=== PATIENT | male | born 1945 | race Asian ===

== ENCOUNTER 2017-10-14 16:57 | Inpatient (IN) | payer OTHER ==
--- NOTE | 2017-10-14 17:04 | PDOC ---
History of Present Illness - History of Present Illness Initial Comments: 10/14/17 18:33 72 M with a significant PMHx of HTN, ASHD, BPH, who was sent today from his doctors office for a traumatic subdural hematoma. Patient was vacationing in [facility] and fell on Sep 20 while in the bathroom. He went to the hospital there and they found a small dot of blood on the CT, monitored for two days, and then discharged. [place] the [place] and saw his primary today, CT results showed a traumatic right-sided subdural hematoma. Patient does not have any particular complaints at this time He denies headache, sleepiness, lethargy, and vomit PCP: Wilfrido Garcia Apple Picker: Benjie Carlisle Surgical Hx: gallbladder removal, tonsillectomy, hernia repair. <Sara Ohara - Last Filed: 10/14/17 20:49> <Shasta Russell - Last Filed: 10/14/17 21:19> - General Stated Complaint: REF BY DOCTOR Past History <Sara Ohara - Last Filed: 10/14/17 20:49> <Shasta Russell - Last Filed: 10/14/17 21:19> - Past Medical History Allergies/Adverse Reactions: Allergies Allergy/AdvReac Type Severity Reaction Status Date / Time No Known Allergies Allergy Unverified 10/14/17 17:40 Home Medications: Ambulatory Orders Atenolol 25 mg PO DAILY #18 tablet 06/21/14 Enalapril Maleate 5 mg PO DAILY tablet 06/21/14 Amlodipine/Atorvastatin [Amlodipine-Atorvast 5-20 mg] 1 each PO DAILY 10/14/17 Finasteride [Propecia] 1 mg PO DAILY 10/14/17 Memantine HCl [Namenda -] 10 mg PO BID 10/14/17 Tamsulosin HCl [Flomax] 0.4 mg PO DAILY 10/14/17 Review of Systems - Review of Systems Comments:: 10/14/17 18:33 CONSTITUTIONAL: Absent: fever, chills, diaphoresis, generalized weakness, malaise, loss of appetite HEENT: Absent: rhinorrhea, nasal congestion, throat pain, throat swelling, difficulty swallowing, mouth swelling, ear pain, eye pain, visual changes CARDIOVASCULAR: Absent: chest pain, syncope, palpitations, irregular heart rate, lightheadedness , peripheral edema RESPIRATORY: Absent: cough, shortness of breath, dyspnea with exertion, orthopnea, wheezing, stridor, hemoptysis GASTROINTESTINAL: Absent: abdominal pain, abdominal distension, nausea, vomiting, diarrhea, constipation, melena, hematochezia GENITOURINARY: Absent: dysuria, frequency, urgency, hesitancy, hematuria, flank pain, genital pain MUSCULOSKELETAL: Absent: myalgia, arthralgia, joint swelling SKIN: Present: hematoma - right periorbital, right arm; healed laceration to right temporal. Absent: rash, itching, pallor HEMATOLOGIC/IMMUNOLOGIC: Absent: easy bleeding, easy bruising, lymphadenopathy, frequent infections ENDOCRINE: Absent: unexplained weight gain, unexplained weight loss, heat intolerance, cold intolerance NEUROLOGIC: Absent: headache, focal weakness or paresthesias, dizziness, unsteady gait, seizure, mental status changes, bladder or bowel incontinence PSYCHIATRIC: Absent: anxiety, depression, suicidal or homicidal ideation, hallucinations. <Sara Ohara - Last Filed: 10/14/17 20:49> *Physical Exam - Physical Exam Comments: 10/14/17 18:36 GENERAL: Well developed, well nourished. Awake and alert. No acute distress. HEENT: Normocephalic, atraumatic. PERRLA, EOMI. No conjunctival pallor. Sclera are non- icteric. Moist mucous membranes. Oropharynx is clear. NECK: Supple. Full ROM. No JVD. Carotid pulses 2+ and symmetric, without bruits. No thyromegaly. No lymphadenopathy. CARDIOVASCULAR: Regular rate and rhythm. No murmurs, rubs, or gallops. Distal pulses are 2+ and symmetric. PULMONARY: No evidence of respiratory distress. Lungs clear to auscultation bilaterally. No wheezing, rales or rhonchi. ABDOMINAL: Soft. Non-tender. Non-distended. No rebound or guarding. No organomegaly. Normoactive bowel sounds. MUSCULOSKELETAL Normal range of motion at all joints. No bony deformities or tenderness. No CVA tenderness. EXTREMITIES: No cyanosis. No clubbing. No edema. No calf tenderness. SKIN: Old ecchymosis on right upper arm and right peroribital area. Healed 4cm laceration to right temporal region. Warm and dry. Normal capillary refill. No rashes. No jaundice. NEUROLOGICAL: Alert, awake, appropriate. Cranial nerves 2-12 intact. No deficits to light touch and temperature in face, upper extremities and lower extremities. No motor deficits in the in face, upper extremities and lower extremities. Normoreflexic in the upper and lower extremities. Normal speech. Toes are down-going bilaterally. Gait is normal without ataxia. PSYCHIATRIC: Cooperative. Good eye contact. Appropriate mood and affect. <Sara Ohara - Last Filed: 10/14/17 20:49> Heart Score/ECG Review - ECG Intrepretation Comment:: 10/14/17 20:50 Normal sinus rhythm Possible anterior/inferior infarct Abnormal EKG Vent rate. 63 bpm <Sara Ohara - Last Filed: 10/14/17 20:49> ED Treatment Course - LABORATORY CBC & Chemistry Diagram: 10/14/17 19:15 10/14/17 19:15 - Consult/PCP Case discussed with consulting physician: Marlon Cotton (Spoke with Darron, will admit, drained in AM. ) <Sara Ohara - Last Filed: 10/14/17 20:49> - LABORATORY CBC & Chemistry Diagram: 10/14/17 19:15 10/14/17 19:15 <Shasta Russell - Last Filed: 10/14/17 21:19> Medical Decision Making - Medical Decision Making 10/14/17 19:33 14-year-old male fell and during his Dilantin medication September. He was admitted in a local hospital there. - The head CT on September 20 did not show any significant bleed or infarct. Upon returning his took him to see Dr. Garcia to make sure everything was okay. It was noted that he seemed to be little bit more forgetful, but he does have some mild dementia at baseline and takes Namenda. Brain MRI that was done today shows a moderate panhemispheric subdural hematoma with moderate midline shift The neurologist, Dr. Cotton wants Patient admitted for burhole procedure tomorrow Patient is alert and oriented 3, moving all his extremities. He is ambulatory. He is not complaining of any headache or nausea or vomiting. 10/14/17 20:41 <Shasta Russell - Last Filed: 10/14/17 21:19> *DC/Admit/Observation/Transfer - Attestations Scribe Attestion: 10/14/17 18:37 Documentation prepared by Sara Ohara, acting as nuclear medical tech for Shasta Russell MD. <Sara Ohara - Last Filed: 10/14/17 20:49> - Discharge Dispostion Admit: Yes <Shasta Russell - Last Filed: 10/14/17 21:19> Diagnosis at time of Disposition: Subdural hematoma, post-traumatic Qualifiers: Encounter type: initial encounter Loss of consciousness presence/duration: without LOC Qualified Code(s): S06.5X0A - Traumatic subdural hemorrhage without loss of consciousness, initial encounter
[2017-10-14 19:37] LABS: BASO % 2.3 % (0-2.0); EOS % 2.9 % (0-4.5); HEMATOCRIT 36.5 % (35.4-49); HEMOGLOBIN 12.2 GM/dL (11.7-16.9); MCH 31.1 pg (25.7-33.7); MCHC 33.4 g/dl (32.0-35.9); MONO % 8.6 % (3.8-10.2); NEUT % 57.2 % (42.8-82.8); PLATELET COUNT 260 K/MM3 (134-434); RBC 3.92 M/mm3 (4.00-5.60); RDW 13.4 % (11.9-15.9); WHITE BLOOD COUNT 6.5 K/mm3 (4.0-10.0)
[2017-10-14 19:38] LABS: MEAN PLT VOLUME 5.7 fl (7.5-11.1)
[2017-10-14 19:56] LABS: INR 0.96 (0.82-1.09); PROTHROMBIN TIME (PATIENT) 10.8 SEC (9.98-11.88)
[2017-10-14 20:22] LABS: ALBUMIN 4.1 g/dl (3.4-5.0); ANION GAP 6 (8-16); BILIRUBIN,TOTAL 0.4 mg/dL (0.2-1.0); BLOOD UREA NITROGEN 14 mg/dL (7-18); CALCIUM 8.2 mg/dL (8.5-10.1); CHLORIDE 103 mmol/L (98-107); CO2 26 mmol/L (21-32); CREATININE 0.9 mg/dL (0.7-1.3); GLUCOSE,RANDOM 80 mg/dL (74-106); POTASSIUM 3.9 mmol/L (3.5-5.1); SGOT/AST 18 U/L (15-37); SGPT/ALT 22 U/L (12-78); SODIUM 135 mmol/L (136-145); TOT PROT 7.4 g/dl (6.4-8.2)
[2017-10-14 20:25] LABS: ALK PHOS 96 U/L (45-117)
--- NOTE | 2017-10-14 20:53 | PN ---
Teaching Attending Note Name of Resident: Lizzy Salazar ATTENDING PHYSICIAN STATEMENT I saw and evaluated the patient. I reviewed the resident's note and discussed the case with the resident. I agree with the resident's findings and plan as documented. SUBJECTIVE: 72 pmhx. of HTN, ASHD, BPH who presented with traumatic subdural hematoma. He was vacationing in [facility] on 09/20 and fell while he was in the bathroom there and hit his head. States he went to hospital there and CT was done, where they found minute blood, he was observed for two days and then d/c'd. Saw his PCP today, who ordered a MRI. OBJECTIVE: Physical: VS: Vital Signs Period Temp Pulse Resp BP Sys/Espinoza Pulse Ox Last 24 Hr 98.8 F 72 18 132/69 100 GEN: NAD, Restin in bed, AA0X2 HEENT: NCAT, PERRL, Throat without erythema and exudates, L. eye eccymosis CARD: RRR S1, S2 RESP: CTAB ABD: BSX4, NTD to palpation EXT: - C/C/E CBCD WBC 6.5 K/mm3 (4.0-10.0) D 10/14/17 19:15 RBC 3.92 M/mm3 (4.00-5.60) L 10/14/17 19:15 Hgb 12.2 GM/dL (11.7-16.9) 10/14/17 19:15 Hct 36.5 % (35.4-49) 10/14/17 19:15 MCV 93.0 fl (80-96) 10/14/17 19:15 MCHC 33.4 g/dl (32.0-35.9) 10/14/17 19:15 RDW 13.4 % (11.9-15.9) 10/14/17 19:15 Plt Count 260 K/MM3 (134-434) 10/14/17 19:15 MPV 5.7 fl (7.5-11.1) L D 10/14/17 19:15 CMP Sodium 135 mmol/L (136-145) L 10/14/17 19:15 Potassium 3.9 mmol/L (3.5-5.1) 10/14/17 19:15 Chloride 103 mmol/L (98-107) 10/14/17 19:15 Carbon Dioxide 26 mmol/L (21-32) 10/14/17 19:15 Anion Gap 6 (8-16) L 10/14/17 19:15 BUN 14 mg/dL (7-18) D 10/14/17 19:15 Creatinine 0.9 mg/dL (0.7-1.3) 10/14/17 19:15 Creat Clearance w eGFR > 60 (>60) 10/14/17 19:15 Random Glucose 80 mg/dL (74-106) 10/14/17 19:15 Calcium 8.2 mg/dL (8.5-10.1) L 10/14/17 19:15 Total Bilirubin 0.4 mg/dL (0.2-1.0) D 10/14/17 19:15 AST 18 U/L (15-37) D 10/14/17 19:15 ALT 22 U/L (12-78) D 10/14/17 19:15 Alkaline Phosphatase 96 U/L (45-117) D 10/14/17 19:15 Total Protein 7.4 g/dl (6.4-8.2) 10/14/17 19:15 Albumin 4.1 g/dl (3.4-5.0) 10/14/17 19:15 CARDIAC ENZYMES Creatine Kinase 114 IU/L (39-308) 10/14/17 19:15 Troponin I < 0.02 ng/ml (0.00-0.05) 10/14/17 19:15 MRI BRAIN: Mod-large late subacute/chronic right sided panhemispheric subdural hematoma notes with mild-moderate contralateral midline displacement. Several SubCm late EKG:PENDING ASSESSMENT AND PLAN: 72 pmhx. of HTN, ASHD, BPH who presented with traumatic subdural hematoma. 1.) Traumatic Subdural Hematoma - NPO - Type & Screen - Repeat CBC - Coags - NPO - Neurosx on consult - Avoid IVF - Hold Po meds 2.) Dvt Ppx - Scds Place in ICU CC Time:
--- NOTE | 2017-10-14 21:03 | HP ---
CHIEF COMPLAINT: S/p subdural hematoma post fall for lluvia hole PCP: Dr Jose Cotton- Neurosurgeon Dr Norton- Sock Ironer HISTORY OF PRESENT ILLNESS: 72 yo M with PMHx of HTN, TN, Artherosclerotic heart dx, BPH, dementia, presenting after a fall in [place] on Sep 20 and found to have an initially stable subdural hematoma (CT head x2 in [facility]). Pt slipped in [place] and fell while taking a shower, hitting his head face down on the tiles. He bled from a gash on his R forehead (Which was stitched) and bruised underneath his eyes R>L. Pt was observed in the ICU in [facility] for 2 days for the "small stable intracranial bleed". Following discharge from the hospital, in [facility], they continued their tours, at a slower pace, with the pt able to keep up with the activity. Since after the fall, the has noticed pt is more forgetful, and has a bit of an unsteady gait. No loss of sensation, facial droop, slurred speech or weakness of any part of the body however has been noted. No fevers, headaches, chest pain or SOB. Pt was sent by neurosurgeon Dr Cotton after MRI (10/14/17) revealed a moderate midline shift. Pt is to be admitted to ICU for neuro-checks and for monitoring post-lluvia hole. ER course was notable for: (1) CBC, CMP, trops <0.02, INR-0.96, PTT-10.80 (2) CXR- (3) Recent Travel: PAST MEDICAL HISTORY: HTN, TN (28yrs ago) Artherosclerotic heart dx, BPH, dementia PAST SURGICAL HISTORY: Social History: Smoking: former- 1pack/day x10yrs- stopped 28yrs ago Alcohol:Social Drugs: Never Family History: Allergies No Known Allergies Allergy (Unverified 10/14/17 17:40) HOME MEDICATIONS: Home Medications Medication Instructions Recorded Atenolol 25 mg PO DAILY #18 tablet 06/21/14 Enalapril Maleate 5 mg PO DAILY tablet 06/21/14 Amlodipine/Atorvastatin 1 each PO DAILY 10/14/17 [Amlodipine-Atorvast 5-20 mg] Finasteride [Propecia] 1 mg PO DAILY 10/14/17 Memantine HCl [Namenda -] 10 mg PO BID 10/14/17 Tamsulosin HCl [Flomax] 0.4 mg PO DAILY 10/14/17 REVIEW OF SYSTEMS CONSTITUTIONAL: Absent: fever, chills, diaphoresis, generalized weakness, malaise, loss of appetite, weight change HEENT: Absent: rhinorrhea, nasal congestion, throat pain, throat swelling, difficulty swallowing, mouth swelling, ear pain, eye pain, visual changes CARDIOVASCULAR: Absent: chest pain, syncope, palpitations, irregular heart rate, lightheadedness , peripheral edema RESPIRATORY: Absent: cough, shortness of breath, dyspnea with exertion, orthopnea, wheezing, stridor, hemoptysis GASTROINTESTINAL: Absent: abdominal pain, abdominal distension, nausea, vomiting, diarrhea, constipation, melena, hematochezia GENITOURINARY: Absent: dysuria, frequency, urgency, hesitancy, hematuria, flank pain, genital pain MUSCULOSKELETAL: Absent: myalgia, arthralgia, joint swelling, back pain, neck pain SKIN: Absent: rash, itching, pallor HEMATOLOGIC/IMMUNOLOGIC: Absent: easy bleeding, easy bruising, lymphadenopathy, frequent infections ENDOCRINE: Absent: unexplained weight gain, unexplained weight loss, heat intolerance, cold intolerance NEUROLOGIC: Absent: headache, focal weakness or paresthesias, dizziness, unsteady gait, seizure, mental status changes, bladder or bowel incontinence PSYCHIATRIC: Absent: anxiety, depression, suicidal or homicidal ideation, hallucinations. PHYSICAL EXAMINATION Vital Signs - 24 hr 10/14/17 17:00 Temperature 98.8 F Pulse Rate 72 Respiratory 18 Rate Blood Pressure 132/69 O2 Sat by Pulse 100 Oximetry (%) GENERAL: Awake, oriented to person. Knew he was in a hospital, but unable to say which, did not know his age/ or the year. HEAD: Healed scar above R forehead, bruised infraoribital regions bilaterally R> L. EYES: Pupils equal, round and reactive to light, extraocular movements intact, sclera anicteric, conjunctiva clear. No lid lag. EARS, NOSE, THROAT: Ears normal, nares patent, oropharynx clear without exudates. Moist mucous membranes. NECK: Normal range of motion, supple without lymphadenopathy, JVD, or masses. LUNGS: Breath sounds equal, clear to auscultation bilaterally. No wheezes, and no crackles. HEART: Regular rate and rhythm, normal S1 and S2 without murmur, rub or gallop. ABDOMEN: Soft, nontender, not distended, normoactive bowel sounds, no guarding, no rebound, no masses. MUSCULOSKELETAL: Normal range of motion at all joints. No bony deformities or tenderness. No CVA tenderness. UPPER EXTREMITIES: 2+ pulses, warm, well-perfused. No peripheral edema. Strength 5/5, normal tone, normal sensations LOWER EXTREMITIES: 2+ pulses, warm, well-perfused. No peripheral edema. Strength 5/5, normal tone, normal sensations NEUROLOGICAL: No facial droop. Cranial nerves II-XII intact. Normal speech. Gait not observed PSYCHIATRIC: Cooperative. forgetful Laboratory Results - last 24 hr 10/14/17 10/14/17 10/14/17 19:15 19:15 19:15 WBC 6.5 D RBC 3.92 L Hgb 12.2 Hct 36.5 MCV 93.0 MCH 31.1 MCHC 33.4 RDW 13.4 Plt Count 260 MPV 5.7 L D Neutrophils % 57.2 Lymphocytes % 29.0 Monocytes % 8.6 Eosinophils % 2.9 Basophils % 2.3 H PT with INR 10.80 INR 0.96 Sodium 135 L Potassium 3.9 Chloride 103 Carbon Dioxide 26 Anion Gap 6 L BUN 14 D Creatinine 0.9 Creat Clearance w eGFR > 60 Random Glucose 80 Calcium 8.2 L Total Bilirubin 0.4 D AST 18 D ALT 22 D Alkaline Phosphatase 96 D Creatine Kinase 114 Troponin I < 0.02 Total Protein 7.4 Albumin 4.1 Blood Type Antibody Screen 10/14/17 19:15 WBC RBC Hgb Hct MCV MCH MCHC RDW Plt Count MPV Neutrophils % Lymphocytes % Monocytes % Eosinophils % Basophils % PT with INR INR Sodium Potassium Chloride Carbon Dioxide Anion Gap BUN Creatinine Creat Clearance w eGFR Random Glucose Calcium Total Bilirubin AST ALT Alkaline Phosphatase Creatine Kinase Troponin I Total Protein Albumin Blood Type O POSITIVE Antibody Screen Negative MRI brain: moderate panhemispheric subdural hematoma with moderate midline shift ASSESSMENT/PLAN: 72 yo M with PMHx of HTN, TN, Artherosclerotic heart dx, BPH, dementia, presenting with TBI s/p fall, now found to have subdural hematoma with midline shift admitted for a burrhole TBI with subdural hematoma and midline shift: Neuroconsult- Dr Cotton on board ICU consult- Dr Shetty Neurocsarahcks Q4H Type and screen EKG CXR PTT PT/INR CBC, CMP, Mg, Ph Repeat trops NPO after midnight Dr Rob- Cardio clearance (requested by family) HTN: Hold home meds Confirm meds in am Artherosclerotic heart dx/ previous TN: Hold home meds BPH: Hold home meds Dementia: Hold home meds FEN: No fluids recommended at this time Monitor lytes and replete as needed PPx: SCDs Hold heparin for Sx Dispo: ICU Visit type - Emergency Visit Emergency Visit: Yes ED Registration Date: 10/14/17 Care time: The patient presented to the Emergency Department on the above date and was hospitalized for further evaluation of their emergent condition. - New Patient This patient is new to me today: Yes Date on this admission: 10/15/17 - Critical Care Critical Care patient: Yes Total Critical Care Time (in minutes): 38 Critical Care Statement: The care of this patient involved high complexity decision making to prevent further life threatening deterioration of the patient 's condition and/or to evaluate & treat vital organ system(s) failure or risk of failure. Hospitalist Screening - Colonoscopy Questionnaire Colonoscopy Questionnaire: Colonoscopy Questionnaire - Patient: 50 - 75 years old and never had a screening colonoscopy: Unknown History of colon or rectal polyps, or CA: Unknown History of IBD, Crohn's disease or UC: Unknown History of abdominal radiation therapy as a child: Unknown - Relative: 1 with colon or rectal CA, or polyps at age 60 or younger: Unknown Colon or rectal CA diagnosed at age 45 or younger: Unknown Multiple relatives with colon or rectal CA: Unknown - Outcome: Screening Result: Negative Screen
[2017-10-14 21:08] LABS: URINE APPEARANCE CLEAR; URINE BILIRUBIN NEGATIVE (NEGATIVE); URINE BLOOD NEGATIVE (NEGATIVE); URINE COLOR LTYELLOW; URINE GLUCOSE (UA) NEGATIVE (NEGATIVE); URINE KETONE NEGATIVE (NEGATIVE); URINE LEUK ESTERASE NEGATIVE (NEGATIVE); URINE NITRITE NEGATIVE (NEGATIVE); URINE PROTEIN NEGATIVE (NEGATIVE); URINE UROBILINOGEN NEGATIVE mg/dL (0.2-1.0)
[2017-10-14 22:33] VITALS: BMI 21.6
--- NOTE | 2017-10-14 22:40 | CONSULT ---
Consult Consult Specialty:: Pulmonary/Critical Care Reason for Consultation:: Subdural hematoma - History of Present Illness Chief Complaint: Forgetfulness, unsteady gait, known subdural hematoma, now with midline shift History of Present Illness: Mr. Rivera is a 72 yo male with PMHx of HTN, [place], artherosclerotic heart dx, BPH, dementia (dx ~1year ago with early Alzheimer's), who fell in [place] on 09/20 and found to have an initially stable subdural hematoma, but when noted slightly unsteady gait and increased forgetfulness, saw PCP and MRI done 2017 which revealed moderate midline shift, prompting referral to [facility] ED by Neurosurgeon Dr Rob. Plan for lluvia hole by Neurosurgery in am. Admitted to ICU for close monitoring with frequent neuro checks. Arrived to ICU in NAD, vital signs stable and GCS 14, loss 1 point for confusion to month/year and president. AOx1-2, knew name and able to state situation and reason for hospitalization. Denies TRAVIS, blurred vision, nausea, dizziness, numbness/tingling , and/or weakness. Denied CP/SOB, n/v/d, or urinary complaints. - History Source History Provided By: Patient, Significant Other () Limitations to Obtaining History: Dementia - Past Medical History MARKETING SUPPORT SPECIALIST: Yes: Alzheimer's Cardio/Vascular: Yes: HTN, [place], Other (atheroslerotic heart disease) Renal/: Yes: BPH - Past Surgical History Past Surgical History: Yes: Cholecystectomy, Hernia Repair, Tonsillectomy - Alcohol/Substance Use Hx Alcohol Use: Yes (occasional) History of Substance Use: reports: None - Smoking History Smoking history: Former smoker (10 pack year history, quit in late 20s, smoked 1ppd for ~ 10yrs) Have you smoked in the past 12 months: No - Social History Usual Living Arrangement: With Spouse ADL: Independent Home Medications - Allergies Allergies/Adverse Reactions: Allergies Allergy/AdvReac Type Severity Reaction Status Date / Time No Known Allergies Allergy Unverified 10/14/17 17:40 - Home Medications Home Medications: Ambulatory Orders Atenolol 25 mg PO DAILY #18 tablet 06/21/14 Enalapril Maleate 5 mg PO DAILY tablet 06/21/14 Amlodipine/Atorvastatin [Amlodipine-Atorvast 5-20 mg] 1 each PO DAILY 10/14/17 Finasteride [Propecia] 1 mg PO DAILY 10/14/17 Memantine HCl [Namenda -] 10 mg PO BID 10/14/17 Tamsulosin HCl [Flomax] 0.4 mg PO DAILY 10/14/17 Review of Systems - Review of Systems Constitutional: reports: Lethargy Eyes: denies: Blurred Vision, Eye Pain, Recent Change in Vision HENT: denies: Difficult Swallowing Neck: denies: Decreased ROM, Pain on Movement Cardiovascular: denies: Chest Pain Respiratory: denies: Cough, SOB, SOB on Exertion Gastrointestinal: denies: Abdominal Pain, Constipation, Nausea, Vomiting Genitourinary: reports: Other (denies retention). denies: Dysuria, Frequency, Urgency Musculoskeletal: denies: Muscle Weakness Integumentary: reports: Bruising (below right eye as result of fall 2/3). denies: Rash, Wound Neurological: reports: Confusion ( reports increased confusion since fall), Pre-Existing Deficit (Alzheimer's dx'd about one year ago a/p ), Unsteady Gait ( reports slight unsteadiness to gait since fall). denies: Change in LOC, Change in Speech, Dizziness, Headache, Numbness, Parasthesia, Syncope, Weakness Endocrine: reports: Other (poor appetite since around the time of Alzheimer's dx a/p ) Physical Exam Vital Signs: Vital Signs Temperature 98.6 F 10/14/17 22:22 Pulse Rate 86 10/14/17 22:22 Respiratory Rate 18 10/14/17 22:22 Blood Pressure 132/89 10/14/17 22:22 O2 Sat by Pulse Oximetry (%) 100 10/14/17 22:22 Constitutional: Yes: No Distress, Calm, Thin Eyes: Yes: Conjunctiva Clear, EOM Intact, PERRL HENT: Yes: Normocephalic, Other (ecchymosis below right eye) Cardiovascular: Yes: Regular Rate and Rhythm Respiratory: Yes: CTA Bilaterally Gastrointestinal: Yes: Normal Bowel Sounds, Soft, Other (nontender, nondistended ) ...Rectal Exam: Yes: Deferred Edema: No Peripheral Pulses WNL: Yes Neurological: Yes: Confusion (AOx ~ 2, knows name and place, confused to month/ year and president), Cran Nerves II-XII Intact ...Motor Strength: WNL (equal bilaterally) Labs: CBC, BMP 10/14/17 19:15 10/14/17 19:15 Hepatic Panel Total Bilirubin 0.4 mg/dL (0.2-1.0) D 10/14/17 19:15 AST 18 U/L (15-37) D 10/14/17 19:15 ALT 22 U/L (12-78) D 10/14/17 19:15 Alkaline Phosphatase 96 U/L (45-117) D 10/14/17 19:15 Albumin 4.1 g/dl (3.4-5.0) 10/14/17 19:15 Coags normal UA negative T&S active Imaging - Results X-ray: Report Reviewed (CXR 10/14: The heart size is within normal limits. The lung delacruz are free of pulmonary infiltrates or pleural effusions. There is tortuosity and calcification of the thoracic aorta and degenerative changes of the thoracic spine. IMPRESSION: No acute disease.) MRI: Report Reviewed (BRAIN MRI 10/14:IMPRESSION: A moderate to large late subacute/chronic right-sided panhemispheric subdural hematoma is noted with resultant mild to moderate contralateral midline displacement. Several subcentimeter late subacute/chronic bilateral frontal hemorrhagic cortical contusions are seen without associated edema or mass effect. Minimal periventricular and subcortical chronic microvascular changes are noted as on a previous MRI study of 10/28/2016. No interval imaging studies are available at this facility for direct comparison. Moderate right maxillary sinusitis which is probably subacute or chronic. Correlate clinically.) Assessment/Plan A/P: s/p fall September 20 where found to have subdural hematoma, now MRI revealing moderate panhemispheric subdural hematoma with moderate midline shift , admitted to ICU for monitoring with plan for [place] hole in am by Neurosurgery -neuro checks q1h -HOB>30 degrees -active T&S done -coags normal -NPO for OR Critical Care Time: 25min
[2017-10-15 06:30] LABS: BASO % 2.3 % (0-2.0); EOS % 1.8 % (0-4.5); HEMATOCRIT 36.8 % (35.4-49); HEMOGLOBIN 12.3 GM/dL (11.7-16.9); LYMPH % 27.8 % (8-40); MCH 31.3 pg (25.7-33.7); MCHC 33.5 g/dl (32.0-35.9); MEAN CELL VOLUME 93.4 fl (80-96); MEAN PLT VOLUME 6.1 fl (7.5-11.1); MONO % 7.5 % (3.8-10.2); NEUT % 60.6 % (42.8-82.8); PLATELET COUNT 263 K/MM3 (134-434); RBC 3.94 M/mm3 (4.00-5.60); RDW 13.3 % (11.9-15.9)
--- NOTE | 2017-10-15 06:41 | PN ---
Progress Note, Physician History of Present Illness: Last night: Admitted to ICU for traumatic R subdural hematoma on MRI. Patient has baseline dementia, but is more confused as per . AMADEO overnight. VSS Today: No complaints. No headache. Not oriented to place/month. Difficulty with memory. Otherwise pleasant. To the OR either later today or tomorrow. NPO since midnight - Objective Vital Signs: Vital Signs Period Temp Pulse Resp BP Sys/Espinoza Pulse Ox Last 24 Hr 98.5 F-98.8 F 60-86 14-18 128-137/69-89 98-100 Additional Findings/Remarks: GEN: Awake, alert, oriented just to person, not to place/month HEENT: PERRLA, EOMi, bruise under R eye CV: S1, S2, RRR LUNG: CTABL ABD: Soft, NT, ND MSK: No edema, no erythema NEURO: CN 2-12 grossly intact MSK 5/5 in all extremities Sensation intact Assessment/Plan 72yo M with a PMHx of Dementia (diagnosed last year), HTN who presented with a subdural hematoma after a mechanical slip & fall. Presents with increased confusion Neuro: * # R Subdural Hematoma - Likely acute traumatic after recent mechanical fall in [place] while on vacation. Pt has trauma to ipsilateral face, and subdural was not present 1 year ago on MRI. Patient has increased confusion, but is otherwise neurologically intact. Coags wnl. Dr Cotton will take to OR today for [place] hole procedure. NPO since midnight. * # Dementia - Diagnosed last year, but more confused above baseline. Will hold Namenda prior to procedure CV: * # HTN - Continue home antiHTN meds after surgery. BP stable. EKG NSR w/o ST or TWI FEN/PPX: No fluids, NPO, on SCDs Dispo: To the OR tmrw, remain in ICU Amy León MD PGY1 ICU
[2017-10-15 06:53] LABS: INR 0.98 (0.82-1.09); PROTHROMBIN TIME (PATIENT) 11.1 SEC (9.98-11.88)
[2017-10-15 06:56] LABS: ACTIVATED PTT 29.9 SECONDS (26.9-34.4)
[2017-10-15 06:59] LABS: ALBUMIN 3.9 g/dl (3.4-5.0); ANION GAP 10 (8-16); BLOOD UREA NITROGEN 11 mg/dL (7-18); CALCIUM 8.7 mg/dL (8.5-10.1); CHLORIDE 101 mmol/L (98-107); CO2 24 mmol/L (21-32); CREATININE 0.9 mg/dL (0.7-1.3); GLUCOSE,RANDOM 88 mg/dL (74-106); MAGNESIUM 2.1 mg/dL (1.8-2.4); PHOSPHOROUS 3.7 mg/dL (2.5-4.9); POTASSIUM 4.2 mmol/L (3.5-5.1); SGOT/AST 24 U/L (15-37); SGPT/ALT 22 U/L (12-78); SODIUM 135 mmol/L (136-145)
[2017-10-15 07:04] LABS: ALK PHOS 74 U/L (45-117); BILIRUBIN,TOTAL 0.6 mg/dL (0.2-1.0); TOT PROT 7.1 g/dl (6.4-8.2)
--- NOTE | 2017-10-15 09:36 | PN ---
Progress Note, Physician History of Present Illness: confusion and unsteady - Current Medication List Current Medications: Active Medications Chlorhexidine Gluconate (Hibiclens For Decolonization -) 1 applic TP HS DB Mupirocin (Bactroban Ointment (For Decolonization) -) 1 applic NS BID DB Stop: 10/20/17 09:59 - Objective Vital Signs: Vital Signs Temperature 98.2 F 10/15/17 06:00 Pulse Rate 86 10/15/17 08:00 Respiratory Rate 16 10/15/17 06:00 Blood Pressure 144/82 10/15/17 08:00 O2 Sat by Pulse Oximetry (%) 100 10/15/17 07:51 Cardiovascular: Yes: S1, S2 Respiratory: Yes: Regular, CTA Bilaterally Gastrointestinal: Yes: Normal Bowel Sounds, Soft. No: Tenderness Neurological: Yes: Alert, Confusion. No: Facial Droop Labs: CBC, BMP 10/15/17 06:10 10/15/17 06:10 INR, PTT INR 0.98 (0.82-1.09) 10/15/17 06:10 Problem List - Problems (1) Subdural hematoma, post-traumatic Assessment/Plan: NS CONSULT APPRECIATED SCAN NOTED OR TODAY ICU MONITORING Code(s): S06.5X9A - TRAUM SUBDR HEM W LOC OF UNSP DURATION, INIT Qualifiers: Encounter type: initial encounter Loss of consciousness presence/duration: without LOC Qualified Code(s): S06.5X0A - Traumatic subdural hemorrhage without loss of consciousness, initial encounter (2) HTN (hypertension) Assessment/Plan: MONITOR ON ATENOLOL HOLD OFF NORVASC AND JULISSA Code(s): I10 - ESSENTIAL (PRIMARY) HYPERTENSION (3) Myocardial infarct, old Assessment/Plan: ON LIPITOR CARDIO CONSULT Code(s): I25.2 - OLD MYOCARDIAL INFARCTION
--- NOTE | 2017-10-15 10:10 | CONSULT ---
Consult - text type - Consultation Consultation Note: NEUROSURGERY CONSULTATION Michael Rivera is a 72 year old male who was travelling in [facility] earlier this month and suffered a fall. He was evaluated at a hospital in [facility] and by report, CT was unremarkable. He developed ecchymosis over his Right eye and returned to his baseline level of functioning which is notable for a gradual decline of cognitive power over more than one years time. The patient was evaluated with MRI last evening and a subacute Right subdural hematoma was noted with mass effect and mild Right to Left midline shift. The patient was admitted to ICU for close observation. He was imaged with MRI in October of 2016 and there was no acute/traumatic pathology noted at that time, specifically, no subdural hematoma. On Physical examination, the patient is largely nonfocal in terms of lateralizing signs. There is no pronator drift. The patient DOES, however, extinguish to double simultaneous stimulation (Left side), which is consistent with this lesion. I am informed that the apparent cognitive deficits are at baseline for him. CT from October 15, 2017 demonstrates a chronic appearing subdural collection along the Right hemisphere. There are no apparent membranes or dense/acute clots noted. I discussed his case in detail with the patient's spouse, Ketty. I described the risks, benefits and alternatives to Right Frontal lluvia hole drainage of subdural hematoma. I explained that the risks included, but were not limited to : , coma, paralysis, bleeding, infection and failure to improve. I explained that there is a 10% risk of reaccumulation of blood and that if that were to happen, a craniotomy may be required. All questions were answered. Informed consent was obtained. I offered the option of seeking another opinion or another surgeon. I will plan for surgery on October 16, 2017 at 1000 AM. Patient may eat today and will be prepared for surgery in the morning.
[2017-10-15] MEDS: TAMSULOSIN HCL 0.4 MG CAP.ER.24H (FP) PO SCH (10:59)
--- NOTE | 2017-10-15 11:06 | EKG ---
Test Reason : Blood Pressure : / mmHG Vent. Rate : 064 BPM Atrial Rate : 064 BPM P-R Int : 174 ms QRS Dur : 082 ms QT Int : 412 ms P-R-T Axes : 037 037 011 degrees QTc Int : 425 ms NORMAL SINUS RHYTHM POSSIBLE INFERIOR INFARCT , AGE UNDETERMINED POSSIBLE ANTERIOR INFARCT , AGE UNDETERMINED ABNORMAL ECG NO PREVIOUS ECGS AVAILABLE Confirmed by JONATHAN COTTRELL MD ([id number]) on 10/15/2017 11:05:52 AM Referred By: Confirmed By:JONATHAN COTTRELL MD
[2017-10-15] MEDS ORDERED: PT OWN MED DRAWER 7, Y5N ONE (11:58)
--- NOTE | 2017-10-15 12:10 | CON.CARD ---
Consult Consult Specialty:: Cardiology Referred by:: Wilfrido Garcia MD Reason for Consultation:: Pre-op cardiovascular evaluation - History of Present Illness Chief Complaint: Confusion, impaired gait History of Present Illness: Chief Complaint: Forgetfulness, unsteady gait, known subdural hematoma, now with midline shift Mr. Rivera is a 72 yo male with PMHx of HTN, CAD s/p CA, atherosclerotic heart dx, diastolic dysfunction, CKD, BPH, dementia (dx ~1year ago with early Alzheimer's), who fell without LOC in [facility] on 09/20 and found to have an initially stable subdural hematoma, ASA 81 qd d/raji then, but when noted slightly unsteady gait and increased forgetfulness, saw PCP and MRI done 2017 revealed moderate midline shift, prompting referral to [facility] Neurosurgeon Dr Rob who plans for lluvia hole in am. Admitted to ICU for close monitoring with frequent neuro checks. Patient denies TRAVIS, blurred vision, nausea, dizziness, numbness/tingling, and/or weakness. Denies CP/SOB, n/v/d, near or true syncope, palpitations, or urinary complaints. - History Source History Provided By: Family Member Limitations to Obtaining History: Clinical Condition - Past Medical History [employer]: Yes: Alzheimer's Cardio/Vascular: Yes: HTN, CA, Other (atheroslerotic heart disease) Renal/: Yes: BPH - Past Surgical History Past Surgical History: Yes: Cholecystectomy, Hernia Repair, Tonsillectomy - Alcohol/Substance Use Hx Alcohol Use: Yes (occasional) History of Substance Use: reports: None - Smoking History Smoking history: Former smoker (10 pack year history, quit in late 20s, smoked 1ppd for ~ 10yrs) Have you smoked in the past 12 months: No - Social History Usual Living Arrangement: With Spouse ADL: Independent Home Medications - Allergies Allergies/Adverse Reactions: Allergies Allergy/AdvReac Type Severity Reaction Status Date / Time No Known Allergies Allergy Unverified 10/14/17 17:40 - Home Medications Home Medications: Ambulatory Orders Atenolol 25 mg PO DAILY #18 tablet 06/21/14 Enalapril Maleate 5 mg PO DAILY tablet 06/21/14 Amlodipine/Atorvastatin [Amlodipine-Atorvast 5-20 mg] 1 each PO DAILY 10/14/17 Finasteride [Propecia] 1 mg PO DAILY 10/14/17 Memantine HCl [Namenda -] 10 mg PO BID 10/14/17 Tamsulosin HCl [Flomax] 0.4 mg PO DAILY 10/14/17 Review of Systems - Review of Systems Neurological: reports: Confusion, Unsteady Gait Vital Signs: Vital Signs Temperature 98.4 F 10/15/17 10:00 Pulse Rate 88 10/15/17 10:00 Respiratory Rate 15 10/15/17 10:00 Blood Pressure 133/69 10/15/17 10:00 O2 Sat by Pulse Oximetry (%) 100 10/15/17 07:51 Constitutional: Yes: No Distress, Calm Neck: Yes: Supple Respiratory: Yes: Regular, CTA Bilaterally Gastrointestinal: Yes: Normal Bowel Sounds, Soft Cardiovascular: Yes: Regular Rate and Rhythm JVD: No Carotid Bruit: No Heart Sounds: Yes: S1, S2 Edema: No - Other Data Labs, Other Data: CBC, BMP 10/15/17 06:10 10/15/17 06:10 INR, PTT INR 0.98 (0.82-1.09) 10/15/17 06:10 Troponin, BNP 10/14/17 10/15/17 19:15 06:10 Troponin I < 0.02 < 0.02 Troponin, BNP 10/14/17 10/15/17 19:15 06:10 Troponin I < 0.02 < 0.02 NSR @ 64 Ejection Fraction %: LVEF > or = 40 % Imaging - Results Chest X-ray: Report Reviewed (NAD) MRI: Report Reviewed ((BRAIN MRI 10/14:IMPRESSION: A moderate to large late subacute/chronic right-sided panhemispheric subdural hematoma is noted with resultant mild to moderate contralateral midline displacement. Several subcentimeter late subacute/chronic bilateral frontal hemorrhagic cortical contusions are seen without associated edema or mass effect. Minimal periventricular and subcortical chronic microvascular changes are noted as on a previous MRI study of 10/28/2016. No interval imaging studies are available at this facility for direct comparison. Moderate right maxillary sinusitis which is probably subacute or chronic. Correlate clinically.)) Problem List - Problems (1) Hypertensive cardiomyopathy Code(s): I11.9 - HYPERTENSIVE HEART DISEASE WITHOUT HEART FAILURE; I43 - CARDIOMYOPATHY IN DISEASES CLASSIFIED ELSEWHERE Qualifiers: Heart failure presence: without heart failure Qualified Code(s): I11.9 - Hypertensive heart disease without heart failure; I43 - Cardiomyopathy in diseases classified elsewhere; I43 - Cardiomyopathy in diseases classified elsewhere; I43 - Cardiomyopathy in diseases classified elsewhere; I43 - Cardiomyopathy in diseases classified elsewhere (2) Hyperlipidemia Code(s): E78.5 - HYPERLIPIDEMIA, UNSPECIFIED Qualifiers: Hyperlipidemia type: pure hypercholesterolemia Qualified Code(s): E78.00 - Pure hypercholesterolemia, unspecified; E78.0 - Pure hypercholesterolemia (3) Pre-operative cardiovascular examination Code(s): Z01.810 - ENCOUNTER FOR PREPROCEDURAL CARDIOVASCULAR EXAMINATION (4) Myocardial infarct, old Code(s): I25.2 - OLD MYOCARDIAL INFARCTION (5) Subdural hematoma, post-traumatic Code(s): S06.5X9A - TRAUM SUBDR HEM W LOC OF UNSP DURATION, INIT Qualifiers: Encounter type: initial encounter Loss of consciousness presence/duration: without LOC Qualified Code(s): S06.5X0A - Traumatic subdural hemorrhage without loss of consciousness, initial encounter (6) Coronary artery disease Code(s): I25.10 - ATHSCL HEART DISEASE OF [place] CORONARY ARTERY W/O ANG PCTRS (7) Abnormal myocardial perfusion study Code(s): R94.39 - ABNORMAL RESULT OF OTHER CARDIOVASCULAR FUNCTION STUDY (8) Diastolic dysfunction Code(s): I51.9 - HEART DISEASE, UNSPECIFIED Assessment/Plan 12/05/2016 Echo: Low normal LV systolic fxn EF 50-55%, mild LAE 4.7 cm, mod MR, mild TR 07/06/2015 Small to moderate inferolateral infarct with small periinfarct ischemia, LVEF 66% 1. Pre-op cardiovascular evaluation prior to lluvia hole decompression of traumatic right SDH with moderate midline shift 2. CAD s/p CA, abnormal MPI 3. Diastolic dysfunction with mod MR 4. HTN/HCVD 5. Hyperlipidemia 6. Dementia P:1. Given absence of symptoms of acute coronary syndrome, decompensated CHF and malignant arrhythmia and low risk most recent MPI, may proceed with NSG procedure from CV-standpoint without further imaging 2. Continue Atenolol 25 mg PO DAILY, Enalapril Maleate 5 mg PO DAILY, Amlodipine /Atorvastatin [Amlodipine-Atorvast 5-20 mg] 1 each PO DAILY 3. Thank you for consultative opportunity
--- NOTE | 2017-10-15 12:19 | PN ---
Teaching Attending Note Name of Resident: Amy León ATTENDING PHYSICIAN STATEMENT I saw and evaluated the patient. I reviewed the resident's note and discussed the case with the resident. I agree with the resident's findings and plan as documented. SUBJECTIVE: Pt seen and examined in the ICU. Denies headache, nausea or vomiting. No vision changes. Per at bedside still more confused than normal. OBJECTIVE: Last Vital Signs Temp Pulse Resp BP Pulse Ox 98.4 F 88 15 133/69 100 10/15/17 10:00 10/15/17 10:00 10/15/17 10:00 10/15/17 10:00 10/15/17 07:51 Intake & Output 10/12/17 10/13/17 10/14/17 10/15/17 23:59 23:59 23:59 23:59 Output Total 100 300 Balance -100 -300 Weight 55.3 kg Gen: NAD at rest Heart: RRR Lung: decreased breath sounds at the bases Abd: soft, nontender Ext: no edema CBC, BMP 10/15/17 06:10 10/15/17 06:10 Active Medications Atenolol (Tenormin -) 25 mg PO DAILY [facility] Atorvastatin Calcium (Lipitor -) 20 mg PO HS [facility] Chlorhexidine Gluconate (Hibiclens For Decolonization -) 1 applic TP HS [facility] Mupirocin (Bactroban Ointment (For Decolonization) -) 1 applic NS BID [facility] Stop: 10/20/17 09:59 Tamsulosin HCl (Flomax -) 0.4 mg PO DAILY@0830 [facility] Last Admin: 10/15/17 10:59 Dose: 0.4 mg ASSESSMENT AND PLAN: Traumatic Subdural Hematoma CAD LV diastolic dysfunction HTN Hypercholesterolemia CKD BPH Dementia - for OR in AM for lluvia hole drainage - neuro checks - mechanical DVT prophylaxis
[2017-10-15] MEDS: ATENOLOL 25 MG TABLET (FP) PO SCH (13:33)
[2017-10-15] MEDS: MUPIROCIN 2% TOPICAL OINTMENT FOR DECOLONIZATION NS SCH ×2 (13:36→21:34)
[2017-10-15] MEDS ORDERED: CHLORHEXIDINE GLUCONATE 4% CLEANSER FOR DECOLONIZATION TP SCH (22:00)
[2017-10-15] MEDS ORDERED: ATORVASTATIN CA 20 MG TABLET (FP) PO SCH ×2 (22:00)
[2017-10-16 06:10] LABS: HEMATOCRIT 34.9 % (35.4-49); HEMOGLOBIN 11.8 GM/dL (11.7-16.9); MCH 31.7 pg (25.7-33.7); MCHC 33.8 g/dl (32.0-35.9); MEAN CELL VOLUME 93.8 fl (80-96); MEAN PLT VOLUME 6.2 fl (7.5-11.1); PLATELET COUNT 257 K/MM3 (134-434); RBC 3.72 M/mm3 (4.00-5.60); RDW 13.3 % (11.9-15.9); WHITE BLOOD COUNT 5.4 K/mm3 (4.0-10.0)
[2017-10-16 06:37] LABS: ALBUMIN 3.7 g/dl (3.4-5.0); ALK PHOS 73 U/L (45-117); ANION GAP 12 (8-16); BILIRUBIN,TOTAL 0.4 mg/dL (0.2-1.0); BLOOD UREA NITROGEN 14 mg/dL (7-18); CALCIUM 8.4 mg/dL (8.5-10.1); CHLORIDE 97 mmol/L (98-107); CO2 24 mmol/L (21-32); CREATININE 0.9 mg/dL (0.7-1.3); GLUCOSE,RANDOM 91 mg/dL (74-106); PHOSPHOROUS 3.5 mg/dL (2.5-4.9); POTASSIUM 4.3 mmol/L (3.5-5.1); SGOT/AST 18 U/L (15-37); SGPT/ALT 19 U/L (12-78); SODIUM 133 mmol/L (136-145)
[2017-10-16] MEDS ORDERED: LIDOCAINE 1%/EPI 1:100000 (20 ML MULTI DOSE VIAL) ONE (07:23)
[2017-10-16] MEDS ORDERED: GENTAMICIN SO4 80 MG/2 ML VIAL ONE (07:23)
[2017-10-16] MEDS ORDERED: THROMBIN (BOVINE) 20,000 UNIT VIAL TP ONE (07:24)
[2017-10-16] MEDS ORDERED: VANCOMYCIN 1,000 MG VIAL (RESTRICTED TO ID ONLY) ONE (07:24)
[2017-10-16] MEDS ORDERED: BUPIVACAINE HCL/PF 0.5% (5MG/ML) 10 ML VIAL ONE (07:24)
[2017-10-16] MEDS ORDERED: ROCURONIUM BROMIDE 50 MG/5 ML VIAL ONE (08:05)
[2017-10-16] MEDS ORDERED: LIDOCAINE HCL/PF 2% SDV 5ML VIAL ONE (08:05)
[2017-10-16] MEDS ORDERED: PROPOFOL 20 ML ONE ×2 (08:05→08:06)
[2017-10-16] MEDS ORDERED: SUCCINYLCHOLINE CHLORIDE 200 MG/10 ML VIAL ONE (08:05)
[2017-10-16] MEDS ORDERED: ceFAZolin SODIUM 1 GM VIAL ONE (08:06)
[2017-10-16] MEDS ORDERED: ceFAZolin SODIUM 1 GM VIAL IVPB ONE (08:25)
[2017-10-16] MEDS ORDERED: LIDOCAINE 1%/EPI 1:100000 (20 ML MULTI DOSE VIAL) IJ ONE (08:43)
[2017-10-16] MEDS ORDERED: ePHEDrine SULFATE 50 MG/1 ML AMPULE ONE (08:49)
[2017-10-16] MEDS ORDERED: BACITRACIN 50,000 UNITS VIAL TP ONE (09:00)
[2017-10-16] MEDS ORDERED: THROMBIN (BOVINE) 5,000 UNIT VIAL TP ONE (09:00)
[2017-10-16] MEDS ORDERED: GELATIN, ABSORBABLE 100 EACH SPONGE TP ONE (09:00)
[2017-10-16] MEDS ORDERED: NEOSTIGMINE METHYLSULFATE 0.5 MG/ML - 10 ML MDV ONE (09:02)
[2017-10-16] MEDS ORDERED: DEXAMETHASONE SOD PHOSPHATE 4 MG/1 ML VIAL ONE (09:02)
[2017-10-16] MEDS ORDERED: ONDANSETRON 4 MG/2 ML VIAL ONE (09:02)
[2017-10-16] MEDS ORDERED: GLYCOPYRROLATE 0.2 MG/1 ML VIAL ONE (09:02)
[2017-10-16] MEDS ORDERED: ONDANSETRON 4 MG/2 ML VIAL IVPUSH PRN ×2 (09:20→11:46)
--- NOTE | 2017-10-16 09:26 | PN ---
Progress Note, Physician History of Present Illness: Last night: Confused last night, but pleasant. Otherwise AMADEO Today: No complaints. No headache. Not oriented to place/month. Went to the OR this AM for [place] hole. - Objective Vital Signs: Vital Signs Period Temp Pulse Resp BP Sys/Espinoza Pulse Ox Last 24 Hr 98 F-98.5 F 51-88 12-19 102-152/55-85 100 Additional Findings/Remarks: GEN: Awake, alert, not oriented to place and time HEENT: PERRLA, EOMi CV: S1, S2, RRR LUNG: CTABL ABD: Soft, NT, ND MSK: No edema, no erythema Assessment/Plan 72yo M with a PMHx of Dementia (diagnosed last year), HTN who presented with a subdural hematoma after a mechanical slip & fall. Presents with increased confusion Neuro: * # R Subdural Hematoma - POD#0 from [place] hole procedure. Stable post-op. NPO since midnight. * # Dementia - Diagnosed last year, but more confused above baseline. CV: * # HTN - Will watch BP for now. Can likely continue home antiHTN meds after surgery. BP stable. EKG NSR w/o ST or TWI FEN/PPX: No fluids, NPO, on SCDs Dispo: Remain in ICU postop Amy León MD PGY1 ICU
[2017-10-16] MEDS ORDERED: LACTATED RINGERS SOLUTION 1,000 ML IV SCH ×2 (09:30→11:46)
[2017-10-16] MEDS ORDERED: oxyCODONE HCL 5 MG TABLET PO PRN (09:44)
[2017-10-16] MEDS ORDERED: ACETAMINOPHEN 325 MG TABLET (FP) PO PRN (09:46)
--- NOTE | 2017-10-16 09:59 | OP ---
Operative Note - Note: Operative Date: 10/16/17 Pre-Operative Diagnosis: Subdural hematoma Operation: right frontal lluvia hole with decompression of subdural hematoma Post-Operative Diagnosis: Same as Pre-op Surgeon: Marlon Cotton Tip Inserter: Marsha Thomas Anesthesiologist/TRAIN ENGINEER: Rhiannon Baltazar Anesthesia: General Estimated Blood Loss (mls): 5 Drains, Volume Out (mls): 150 (turner) Fluid Volume Replaced (mls): 500 Operative Report Dictated: Yes
[2017-10-16] MEDS ORDERED: amLODIPine BESYLATE 5 MG TABLET (FP) PO SCH (10:00)
[2017-10-16] MEDS ORDERED: ENALAPRIL MALEATE 5 MG TABLET (FP) PO SCH (10:00)
[2017-10-16] MEDS ORDERED: MUPIROCIN 2% TOPICAL OINTMENT FOR DECOLONIZATION NS SCH (10:00)
--- NOTE | 2017-10-16 10:03 | SURG ---
Surgery Grinding Wheel Dresser Note Grinding Wheel Dresser: Marsha Thomas PA-C Date of Service: 10/16/17 Diagnosis: Subdural hematoma Procedure: right frontal lluvai hole with decompression of subdural hematoma I was present for the entirety of the operative procedure. For further detail, please refer to operative report. Visit type - Case Type Case Type: ED Admission - Emergency Emergency Visit: Yes ED Registration Date: 10/14/17 Care time: The patient presented to the Emergency Department on the above date and was hospitalized for further evaluation of their emergent condition. - New patient This patient is new to me today: Yes Date on this admission: 10/17/17
--- NOTE | 2017-10-16 11:44 | PN ---
Progress Note, Physician Chief Complaint: Events note Awake and alert Post lluiva hole decompression for subdural hematoma done this am History of Present Illness: Patient was seen and examined. Awake and alert. Chart was reviewed Denies chest pain, SOB or palpitations Head CT done this am post op. - Current Medication List Current Medications: Active Medications Acetaminophen (Tylenol -) 325 mg PO Q4H PRN PRN Reason: PAIN Acetaminophen (Tylenol -) 650 mg PO Q4H PRN PRN Reason: FEVER Amlodipine Besylate (Norvasc -) 5 mg PO DAILY [facility] Atenolol (Tenormin -) 25 mg PO DAILY [facility] Last Admin: 10/15/17 13:33 Dose: 25 mg Atorvastatin Calcium (Lipitor -) 20 mg PO HS [facility] Last Admin: 10/15/17 21:33 Dose: 20 mg Chlorhexidine Gluconate (Hibiclens For Decolonization -) 1 applic TP HS [facility] Last Admin: 10/15/17 21:33 Dose: 1 applic Chlorhexidine Gluconate (Hibiclens For Decolonization -) 1 applic TP HS [facility] Enalapril Maleate (Vasotec -) 5 mg PO DAILY [facility] Fentanyl (Sublimaze Injection -) 25 mcg IVPUSH [id number] PRN PRN Reason: PAIN-PACU ORDER X 4 DOSES ONLY Heparin Sodium (Porcine) (Heparin -) 5,000 unit SQ Q8H-IV [facility] Lactated Ringer's (Lactated Ringers Solution) 1,000 mls @ 83 mls/hr IV ASDIR [facility] Mupirocin (Bactroban Ointment (For Decolonization) -) 1 applic NS BID [facility] Stop: 10/20/17 09:59 Last Admin: 10/15/17 21:34 Dose: 1 applic Mupirocin (Bactroban Ointment (For Decolonization) -) 1 applic NS BID [facility] Stop: 10/21/17 09:59 Ondansetron HCl (Zofran Injection) 4 mg IVPUSH Q6H PRN PRN Reason: NAUSEA AND/OR VOMITING Oxycodone HCl (Roxicodone -) 5 mg PO Q4H PRN PRN Reason: PAIN LEVEL 1-5 Oxycodone HCl (Roxicodone -) 10 mg PO Q4H PRN PRN Reason: PAIN LEVEL 6-10 Tamsulosin HCl (Flomax -) 0.4 mg PO DAILY@0830 [facility] Last Admin: 10/15/17 10:59 Dose: 0.4 mg - Objective Vital Signs: Vital Signs Temperature 98.3 F 10/16/17 09:45 Pulse Rate 84 10/16/17 10:15 Respiratory Rate 18 10/16/17 10:15 Blood Pressure 119/75 10/16/17 10:15 O2 Sat by Pulse Oximetry (%) 100 10/16/17 10:15 Neck: Yes: Supple Cardiovascular: Yes: Regular Rate and Rhythm, Murmur (Soft SM LSB), S1, S2 Respiratory: Yes: CTA Bilaterally Gastrointestinal: Yes: Normal Bowel Sounds, Soft. No: Tenderness Edema: No Labs: CBC, BMP 10/16/17 05:47 10/16/17 05:47 INR, PTT INR 0.98 (0.82-1.09) 10/15/17 06:10 Problem List - Problems (1) Abnormal myocardial perfusion study Code(s): R94.39 - ABNORMAL RESULT OF OTHER CARDIOVASCULAR FUNCTION STUDY (2) Coronary artery disease Code(s): I25.10 - ATHSCL HEART DISEASE OF [place] CORONARY ARTERY W/O ANG PCTRS (3) Diastolic dysfunction Code(s): I51.9 - HEART DISEASE, UNSPECIFIED (4) HTN (hypertension) Code(s): I10 - ESSENTIAL (PRIMARY) HYPERTENSION (5) Hyperlipidemia Code(s): E78.5 - HYPERLIPIDEMIA, UNSPECIFIED Qualifiers: Hyperlipidemia type: pure hypercholesterolemia Qualified Code(s): E78.00 - Pure hypercholesterolemia, unspecified; E78.0 - Pure hypercholesterolemia (6) Subdural hematoma, post-traumatic Code(s): S06.5X9A - TRAUM SUBDR HEM W LOC OF UNSP DURATION, INIT Qualifiers: Encounter type: initial encounter Loss of consciousness presence/duration: without LOC Qualified Code(s): S06.5X0A - Traumatic subdural hemorrhage without loss of consciousness, initial encounter Assessment/Plan 1. Post-op cardiovascular evaluation - lluvia hole decompression of traumatic right SDH with moderate midline shift 2. CAD s/p RI and abnormal MPI 3. Diastolic dysfunction with moderate MR 4. HTN/HCVD 5. Hyperlipidemia 6. Dementia PLAN: 1. Post op follow up. Neurosurgery input to follow. Head CT noted 2. Continue Atenolol 25 mg PO DAILY, Enalapril 5 mg PO DAILY, Amlodipine/ Atorvastatin [Amlodipine-Atorvast 5-20 mg] 1 each PO DAILY 3. Monitor electrolytes - follow Na level Further plans are to follow Tomasz Thibodeaux MD
--- NOTE | 2017-10-16 11:47 | PN ---
Progress Note, Physician Chief Complaint: awake alert oriented to name and place no TRAVIS able to tell me his name and name and know he is in hospital - Current Medication List Current Medications: Active Medications Acetaminophen (Tylenol -) 325 mg PO Q4H PRN PRN Reason: PAIN Acetaminophen (Tylenol -) 650 mg PO Q4H PRN PRN Reason: FEVER Amlodipine Besylate (Norvasc -) 5 mg PO DAILY [facility] Atenolol (Tenormin -) 25 mg PO DAILY [facility] Last Admin: 10/15/17 13:33 Dose: 25 mg Atorvastatin Calcium (Lipitor -) 20 mg PO [facility] Last Admin: 10/15/17 21:33 Dose: 20 mg Chlorhexidine Gluconate (Hibiclens For Decolonization -) 1 applic TP [facility] Last Admin: 10/15/17 21:33 Dose: 1 applic Chlorhexidine Gluconate (Hibiclens For Decolonization -) 1 applic TP [facility] Enalapril Maleate (Vasotec -) 5 mg PO DAILY [facility] Fentanyl (Sublimaze Injection -) 25 mcg IVPUSH [id number] PRN PRN Reason: PAIN-PACU ORDER X 4 DOSES ONLY Heparin Sodium (Porcine) (Heparin -) 5,000 unit SQ Q8H-IV [facility] Lactated Ringer's (Lactated Ringers Solution) 1,000 mls @ 83 mls/hr IV ASDIR [facility] Mupirocin (Bactroban Ointment (For Decolonization) -) 1 applic NS BID [facility] Stop: 10/20/17 09:59 Last Admin: 10/15/17 21:34 Dose: 1 applic Mupirocin (Bactroban Ointment (For Decolonization) -) 1 applic NS BID [facility] Stop: 10/21/17 09:59 Ondansetron HCl (Zofran Injection) 4 mg IVPUSH Q6H PRN PRN Reason: NAUSEA AND/OR VOMITING Oxycodone HCl (Roxicodone -) 5 mg PO Q4H PRN PRN Reason: PAIN LEVEL 1-5 Oxycodone HCl (Roxicodone -) 10 mg PO Q4H PRN PRN Reason: PAIN LEVEL 6-10 Tamsulosin HCl (Flomax -) 0.4 mg PO DAILY@0830 [facility] Last Admin: 10/15/17 10:59 Dose: 0.4 mg - Objective Vital Signs: Vital Signs Temperature 98.3 F 10/16/17 09:45 Pulse Rate 84 10/16/17 10:15 Respiratory Rate 18 10/16/17 10:15 Blood Pressure 119/75 10/16/17 10:15 O2 Sat by Pulse Oximetry (%) 100 10/16/17 10:15 Constitutional: Yes: Calm HENT: Yes: Other (surgical dressing in place) Neck: Yes: Trachea Midline Cardiovascular: Yes: Regular Rate and Rhythm, S1, S2 Respiratory: Yes: CTA Bilaterally Gastrointestinal: Yes: Normal Bowel Sounds, Soft Edema: No Neurological: Yes: Alert, Oriented (to place and name able to recognize his ) Labs: CBC, BMP 10/16/17 05:47 10/16/17 05:47 INR, PTT INR 0.98 (0.82-1.09) 10/15/17 06:10 Assessment/Plan s/p mechanical fall s/p lluvia hole/decompression of SDH earlier today currently in ICU neurosurgery Follow up neuro checks came back from CT scan decompression of SDH with moderate midline shift( less than before) - Note: Operative Date: 10/16/17 Pre-Operative Diagnosis: Subdural hematoma Operation: lluvia hole with decompression of subdural hematoma Post-Operative Diagnosis: Same as Pre-op Surgeon: Marlon Cotton General Surgeon: Marsha Thomas Anesthesiologist/SALESPERSON [employer]OM[employer]: Rhiannon Baltazar Anesthesia: General Estimated Blood Loss (mls): 5 Drains, Volume Out (mls): 150 (turner) Fluid Volume Replaced (mls): 500 Operative Report Dictated: Yes DVT ppx : scd HTN:norvasc tenormin enalapril HTN statin BPH on flomax
--- NOTE | 2017-10-16 12:34 | PN ---
Teaching Attending Note Name of Resident: Amy León ATTENDING PHYSICIAN STATEMENT I saw and evaluated the patient. I reviewed the resident's note and discussed the case with the resident. I agree with the resident's findings and plan as documented. SUBJECTIVE: Pt seen and examined in the ICU. s/p lluvia hole evacuation of subdural hematoma this AM. OBJECTIVE: Last Vital Signs Temp Pulse Resp BP Pulse Ox 98.3 F 84 18 119/75 100 10/16/17 09:45 10/16/17 10:15 10/16/17 10:15 10/16/17 10:15 10/16/17 10:15 Intake & Output 10/13/17 10/14/17 10/15/17 10/16/17 23:59 23:59 23:59 23:59 Intake Total 500 Output Total 100 550 300 Balance -100 -550 200 Weight 55.3 kg Gen: NAD at rest Heart: RRR Lung: decreased breath sounds at the bases Abd: soft, nontender Ext: no edema CBC, BMP 10/16/17 05:47 10/16/17 05:47 Active Medications Acetaminophen (Tylenol -) 325 mg PO Q4H PRN PRN Reason: PAIN Acetaminophen (Tylenol -) 650 mg PO Q4H PRN PRN Reason: FEVER Amlodipine Besylate (Norvasc -) 5 mg PO DAILY [facility] Atenolol (Tenormin -) 25 mg PO DAILY [facility] Atorvastatin Calcium (Lipitor -) 20 mg PO HS [facility] Chlorhexidine Gluconate (Hibiclens For Decolonization -) 1 applic TP HS [facility] Enalapril Maleate (Vasotec -) 5 mg PO DAILY [facility] Fentanyl (Sublimaze Injection -) 25 mcg IVPUSH [id number] PRN PRN Reason: PAIN-PACU ORDER X 4 DOSES ONLY Heparin Sodium (Porcine) (Heparin -) 5,000 unit SQ Q8H-IV DB Lactated Ringer's (Lactated Ringers Solution) 1,000 mls @ 83 mls/hr IV ASDIR DB Mupirocin (Bactroban Ointment (For Decolonization) -) 1 applic NS BID DB Stop: 10/20/17 09:59 Ondansetron HCl (Zofran Injection) 4 mg IVPUSH Q6H PRN PRN Reason: NAUSEA AND/OR VOMITING Oxycodone HCl (Roxicodone -) 5 mg PO Q4H PRN PRN Reason: PAIN LEVEL 1-5 Oxycodone HCl (Roxicodone -) 10 mg PO Q4H PRN PRN Reason: PAIN LEVEL 6-10 Tamsulosin HCl (Flomax -) 0.4 mg PO DAILY@0830 [facility] ASSESSMENT AND PLAN: Traumatic Subdural Hematoma s/p [place] Hole Evacuation CAD LV diastolic dysfunction HTN Hypercholesterolemia CKD BPH Dementia - pain control - neuro checks - continue home meds - mechanical DVT prophylaxis
[2017-10-16] MEDS: ENALAPRIL MALEATE 5 MG TABLET (FP) PO SCH (13:56)
[2017-10-16] MEDS: amLODIPine BESYLATE 5 MG TABLET (FP) PO SCH (13:57)
[2017-10-16] MEDS: ATENOLOL 25 MG TABLET (FP) PO SCH ×2 (13:57→21:30)
[2017-10-16] MEDS: TAMSULOSIN HCL 0.4 MG CAP.ER.24H (FP) PO SCH ×2 (14:12→21:28)
[2017-10-16] MEDS: ACETAMINOPHEN 325 MG TABLET (FP) PO PRN ×2 (14:50→22:12)
[2017-10-16] MEDS: oxyCODONE HCL 5 MG TABLET PO PRN ×2 (16:09→22:12)
[2017-10-16] MEDS: HEPARIN NA (PORCINE) 5,000 UNITS/ML 1ML VIAL SQ SCH ×3 (17:06→17:10)
[2017-10-16] MEDS: MUPIROCIN 2% TOPICAL OINTMENT FOR DECOLONIZATION NS SCH ×2 (21:29→21:33)
[2017-10-16] MEDS ORDERED: ATORVASTATIN CA 20 MG TABLET (FP) PO SCH (22:00)
[2017-10-16] MEDS ORDERED: CHLORHEXIDINE GLUCONATE 4% CLEANSER FOR DECOLONIZATION TP SCH ×2 (22:00)
[2017-10-17] MEDS: HEPARIN NA (PORCINE) 5,000 UNITS/ML 1ML VIAL SQ SCH ×3 (02:00→21:30)
[2017-10-17 06:23] LABS: BASO % 0.2 % (0-2.0); EOS % 0.1 % (0-4.5); HEMATOCRIT 32.4 % (35.4-49); HEMOGLOBIN 11.2 GM/dL (11.7-16.9); LYMPH % 12.2 % (8-40); MCHC 34.5 g/dl (32.0-35.9); MEAN CELL VOLUME 92.9 fl (80-96); MEAN PLT VOLUME 6.3 fl (7.5-11.1); MONO % 5.1 % (3.8-10.2); NEUT % 82.4 % (42.8-82.8); PLATELET COUNT 255 K/MM3 (134-434); RBC 3.48 M/mm3 (4.00-5.60); RDW 12.9 % (11.9-15.9); WHITE BLOOD COUNT 8.8 K/mm3 (4.0-10.0)
[2017-10-17 06:55] LABS: ALBUMIN 3.5 g/dl (3.4-5.0); ANION GAP 11 (8-16); BILIRUBIN,TOTAL 0.5 mg/dL (0.2-1.0); BLOOD UREA NITROGEN 15 mg/dL (7-18); CALCIUM 8.6 mg/dL (8.5-10.1); CHLORIDE 93 mmol/L (98-107); CO2 25 mmol/L (21-32); CREATININE 0.8 mg/dL (0.7-1.3); GLUCOSE,RANDOM 98 mg/dL (74-106); MAGNESIUM 2.3 mg/dL (1.8-2.4); PHOSPHOROUS 3.6 mg/dL (2.5-4.9); POTASSIUM 4.3 mmol/L (3.5-5.1); SGOT/AST 18 U/L (15-37); SGPT/ALT 17 U/L (12-78); SODIUM 129 mmol/L (136-145); TOT PROT 6.9 g/dl (6.4-8.2)
[2017-10-17 06:56] LABS: ALK PHOS 61 U/L (45-117)
[2017-10-17] MEDS ORDERED: SODIUM CHLORIDE 1,000 ML IV SCH ×2 (07:45→14:29)
--- NOTE | 2017-10-17 07:49 | PN ---
Progress Note (short form) - Note Progress Note: Surgery POD #1 right frontal lluvia hole/ subdural decompression. Patient seen and examined at bedside. Nursing reports there were no issues overnight, patient rested comfortably. He is voiding on his own. Patient denies any CP/ SOB, N/V, Fever Chills, dizziness or headaches. Vital Signs Temp 98.4 F 10/17/17 06:51 Pulse 90 10/17/17 06:51 Resp 16 10/17/17 06:51 BP 109/56 10/17/17 06:51 Pulse Ox 100 10/16/17 20:00 Intake & Output 18 10/16/17 10/17/17 11:59 23:59 11:59 Intake Total 500 1100 Output Total 300 250 Balance 200 850 Intake: IV 500 1000 Lactated Ringers Solution 1000 1,000 ml @ 83 mls/hr IV ASDIR DB Rx#:[id number] Oral 100 Output: Urine 300 250 Void 200 250 Other: Voiding Method Toilet # Unmeasured Voids Void 1 Bowel Movement No CBC, BMP 03 05:55 10/17/17 05:55 PE: A&O x 2, NAD, resting comfortably Unlabored resp on RA Dressing c/d/i with one small spot of serosanginous drainage in the center bruising and slight edema around right orbit from fall continues to improve EOM intact in all planes, no nystagnmus or delay, Face symmetric, with normal speech. 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 Problem List - Problems (1) Subdural hematoma, post-traumatic Assessment/Plan: POD #1 doing well with improving mental status. Plan: 1) Per Dr Cotton-step down to floor 2) Continue DVT prophylaxis with sq heparin and scds 3) OOB with assist- fall risk percautions 4) Keep dressing clean and dry 5) Continue HOB >30 6) d/c planning Code(s): S06.5X9A - TRAUM SUBDR HEM W LOC OF UNSP DURATION, INIT Qualifiers: Encounter type: initial encounter Loss of consciousness presence/duration: without LOC Qualified Code(s): S06.5X0A - Traumatic subdural hemorrhage without loss of consciousness, initial encounter
[2017-10-17] MEDS: TAMSULOSIN HCL 0.4 MG CAP.ER.24H (FP) PO SCH (08:22)
[2017-10-17] MEDS ORDERED: TAMSULOSIN HCL 0.4 MG CAP.ER.24H (FP) PO SCH (08:30)
--- NOTE | 2017-10-17 09:18 | PN ---
Progress Note (short form) - Note Progress Note: Anesthesia Post op Pt seen and examined S;Alert and awake O; Vital Signs Temperature 98.7 F 10/17/17 08:39 Pulse Rate 62 10/17/17 08:39 Respiratory Rate 16 10/17/17 08:39 Blood Pressure 123/62 10/17/17 08:39 O2 Sat by Pulse Oximetry (%) 100 10/17/17 08:39 CBC, BMP 10/17/17 05:55 10/17/17 05:55 Current Active Problems Abnormal myocardial perfusion study (Acute) Coronary artery disease (Acute) Diastolic dysfunction (Acute) HTN (hypertension) (Acute) Hyperlipidemia (Acute) Hypertensive cardiomyopathy (Acute) Myocardial infarct, old (Acute) Pre-operative cardiovascular examination (Acute) Subdural hematoma, post-traumatic (Acute) A/P: s/p Right lluvia hole Doing well post op Continue current care Alo Roberson MD
[2017-10-17] MEDS ORDERED: ENALAPRIL MALEATE 5 MG TABLET (FP) PO SCH (10:00)
[2017-10-17] MEDS ORDERED: ATENOLOL 25 MG TABLET (FP) PO SCH (10:00)
[2017-10-17] MEDS ORDERED: amLODIPine BESYLATE 5 MG TABLET (FP) PO SCH (10:00)
--- NOTE | 2017-10-17 10:19 | EKG ---
Test Reason : Blood Pressure : / mmHG Vent. Rate : 070 BPM Atrial Rate : 070 BPM P-R Int : 192 ms QRS Dur : 094 ms QT Int : 392 ms P-R-T Axes : 027 007 -04 degrees QTc Int : 423 ms NORMAL SINUS RHYTHM INFERIOR INFARCT , AGE UNDETERMINED POSSIBLE ANTERIOR INFARCT , AGE UNDETERMINED NONSPECIFIC ST ABNORMALITY ABNORMAL ECG Confirmed by DARLING MIRANDA MD ([id number]) on 10/17/2017 10:19:17 AM Referred By: Confirmed By:DARLING MIRANDA MD
--- NOTE | 2017-10-17 10:25 | PN ---
Progress Note, Physician Chief Complaint: patient seen and examined awake alert no distress no headache - Current Medication List Current Medications: Active Medications Acetaminophen (Tylenol -) 325 mg PO Q4H PRN PRN Reason: PAIN Last Admin: 10/17/17 08:21 Dose: 325 mg Acetaminophen (Tylenol -) 650 mg PO Q4H PRN PRN Reason: FEVER Last Admin: 10/16/17 22:12 Dose: 650 mg Amlodipine Besylate (Norvasc -) 5 mg PO DAILY [facility] Last Admin: 10/16/17 13:57 Dose: 5 mg Atenolol (Tenormin -) 25 mg PO DAILY [facility] Last Admin: 10/16/17 13:57 Dose: 25 mg Atorvastatin Calcium (Lipitor -) 20 mg PO HS [facility] Last Admin: 10/16/17 21:36 Dose: 20 mg Chlorhexidine Gluconate (Hibiclens For Decolonization -) 1 applic TP HS [facility] Last Admin: 10/16/17 21:33 Dose: 1 applic Enalapril Maleate (Vasotec -) 5 mg PO DAILY [facility] Last Admin: 10/16/17 13:56 Dose: 5 mg Fentanyl (Sublimaze Injection -) 25 mcg IVPUSH [id number] PRN PRN Reason: PAIN-PACU ORDER X 4 DOSES ONLY Heparin Sodium (Porcine) (Heparin -) 5,000 unit SQ Q8H-IV [facility] Last Admin: 10/17/17 02:00 Dose: 5,000 unit Sodium Chloride (Normal Saline -) 1,000 mls @ 42 mls/hr IV ASDIR [facility] Last Admin: 10/17/17 08:15 Dose: 42 mls/hr Mupirocin (Bactroban Ointment (For Decolonization) -) 1 applic NS BID [facility] Stop: 10/20/17 09:59 Last Admin: 10/16/17 21:33 Dose: 1 applic Ondansetron HCl (Zofran Injection) 4 mg IVPUSH Q6H PRN PRN Reason: NAUSEA AND/OR VOMITING Oxycodone HCl (Roxicodone -) 5 mg PO Q4H PRN PRN Reason: PAIN LEVEL 1-5 Last Admin: 10/17/17 08:21 Dose: 5 mg Oxycodone HCl (Roxicodone -) 10 mg PO Q4H PRN PRN Reason: PAIN LEVEL 6-10 Last Admin: 10/16/17 22:12 Dose: 10 mg Tamsulosin HCl (Flomax -) 0.4 mg PO DAILY@0830 DB Last Admin: 10/17/17 08:22 Dose: 0.4 mg - Objective Vital Signs: Vital Signs Temperature 97.9 F 10/17/17 10:00 Pulse Rate 59 L 10/17/17 10:00 Respiratory Rate 14 10/17/17 10:00 Blood Pressure 101/82 10/17/17 10:00 O2 Sat by Pulse Oximetry (%) 100 10/17/17 08:39 Constitutional: Yes: Calm Eyes: Yes: Other (right eye bruising improving) HENT: Yes: Other (head dressing) Cardiovascular: Yes: Regular Rate and Rhythm, S1, S2 Respiratory: Yes: CTA Bilaterally Gastrointestinal: Yes: Normal Bowel Sounds, Soft Edema: No Neurological: Yes: Alert, Oriented, Other (motor strenght intact) Psychiatric: Yes: Alert, Oriented Labs: CBC, BMP 10/17/17 05:55 10/17/17 05:55 INR, PTT INR 0.98 (0.82-1.09) 10/15/17 06:10 Problem List - Problems (1) Subdural hematoma, post-traumatic Assessment/Plan: s/p lluvia hole transfer to floor oob to chair dvt ppx Code(s): S06.5X9A - TRAUM SUBDR HEM W LOC OF UNSP DURATION, INIT Qualifiers: Encounter type: initial encounter Loss of consciousness presence/duration: without LOC Qualified Code(s): S06.5X0A - Traumatic subdural hemorrhage without loss of consciousness, initial encounter (2) Hyponatremia Assessment/Plan: ivf fluids renal evaluation Code(s): E87.1 - HYPO-OSMOLALITY AND HYPONATREMIA (3) HTN (hypertension) Assessment/Plan: continue meds holdfor SBP < 110/60 Code(s): I10 - ESSENTIAL (PRIMARY) HYPERTENSION (4) Hyperlipidemia Assessment/Plan: statin Code(s): E78.5 - HYPERLIPIDEMIA, UNSPECIFIED Qualifiers: Hyperlipidemia type: pure hypercholesterolemia Qualified Code(s): E78.00 - Pure hypercholesterolemia, unspecified; E78.0 - Pure hypercholesterolemia
[2017-10-17] MEDS: ENALAPRIL MALEATE 5 MG TABLET (FP) PO SCH (10:33)
[2017-10-17] MEDS: amLODIPine BESYLATE 5 MG TABLET (FP) PO SCH (10:33)
[2017-10-17] MEDS: MUPIROCIN 2% TOPICAL OINTMENT FOR DECOLONIZATION NS SCH (10:35)
--- NOTE | 2017-10-17 12:08 | PN ---
Progress Note, Physician History of Present Illness: s/p [place] right traumatic SDH, no events on telemetry. - Current Medication List Current Medications: Active Medications Acetaminophen (Tylenol -) 325 mg PO Q4H PRN PRN Reason: PAIN Last Admin: 10/17/17 08:21 Dose: 325 mg Acetaminophen (Tylenol -) 650 mg PO Q4H PRN PRN Reason: FEVER Last Admin: 10/16/17 22:12 Dose: 650 mg Amlodipine Besylate (Norvasc -) 5 mg PO DAILY [facility] Last Admin: 10/17/17 10:33 Dose: 5 mg Atenolol (Tenormin -) 25 mg PO DAILY [facility] Last Admin: 10/16/17 13:57 Dose: 25 mg Atorvastatin Calcium (Lipitor -) 20 mg PO HS [facility] Last Admin: 10/16/17 21:36 Dose: 20 mg Chlorhexidine Gluconate (Hibiclens For Decolonization -) 1 applic TP HS [facility] Last Admin: 10/16/17 21:33 Dose: 1 applic Enalapril Maleate (Vasotec -) 5 mg PO DAILY [facility] Last Admin: 10/17/17 10:33 Dose: 5 mg Fentanyl (Sublimaze Injection -) 25 mcg IVPUSH [id number] PRN PRN Reason: PAIN-PACU ORDER X 4 DOSES ONLY Heparin Sodium (Porcine) (Heparin -) 5,000 unit SQ Q8H-IV [facility] Last Admin: 10/17/17 10:33 Dose: 5,000 unit Sodium Chloride (Normal Saline -) 1,000 mls @ 42 mls/hr IV ASDIR [facility] Last Admin: 10/17/17 08:15 Dose: 42 mls/hr Mupirocin (Bactroban Ointment (For Decolonization) -) 1 applic NS BID [facility] Stop: 10/20/17 09:59 Last Admin: 10/17/17 10:35 Dose: 1 applic Ondansetron HCl (Zofran Injection) 4 mg IVPUSH Q6H PRN PRN Reason: NAUSEA AND/OR VOMITING Oxycodone HCl (Roxicodone -) 5 mg PO Q4H PRN PRN Reason: PAIN LEVEL 1-5 Last Admin: 10/17/17 08:21 Dose: 5 mg Oxycodone HCl (Roxicodone -) 10 mg PO Q4H PRN PRN Reason: PAIN LEVEL 6-10 Last Admin: 10/16/17 22:12 Dose: 10 mg Tamsulosin HCl (Flomax -) 0.4 mg PO DAILY@0830 [facility] Last Admin: 10/17/17 08:22 Dose: 0.4 mg - Objective Vital Signs: Vital Signs Temperature 97.9 F 10/17/17 10:00 Pulse Rate 59 L 10/17/17 10:00 Respiratory Rate 14 10/17/17 10:00 Blood Pressure 101/82 10/17/17 10:00 O2 Sat by Pulse Oximetry (%) 100 10/17/17 11:36 Constitutional: Yes: No Distress, Calm Neck: Yes: Supple Cardiovascular: Yes: Regular Rate and Rhythm, Murmur (2/6 SM) Respiratory: Yes: Regular, CTA Bilaterally Gastrointestinal: Yes: Normal Bowel Sounds, Soft Edema: No Labs: CBC, BMP 10/17/17 05:55 10/17/17 05:55 INR, PTT INR 0.98 (0.82-1.09) 10/15/17 06:10 - ....Imaging EKG: Report Reviewed (Tele: SR) Problem List - Problems (1) Hypertensive cardiomyopathy Code(s): I11.9 - HYPERTENSIVE HEART DISEASE WITHOUT HEART FAILURE; I43 - CARDIOMYOPATHY IN DISEASES CLASSIFIED ELSEWHERE Qualifiers: Heart failure presence: without heart failure Qualified Code(s): I11.9 - Hypertensive heart disease without heart failure; I43 - Cardiomyopathy in diseases classified elsewhere; I43 - Cardiomyopathy in diseases classified elsewhere; I43 - Cardiomyopathy in diseases classified elsewhere; I43 - Cardiomyopathy in diseases classified elsewhere (2) Hyperlipidemia Code(s): E78.5 - HYPERLIPIDEMIA, UNSPECIFIED Qualifiers: Hyperlipidemia type: pure hypercholesterolemia Qualified Code(s): E78.00 - Pure hypercholesterolemia, unspecified; E78.0 - Pure hypercholesterolemia (3) Myocardial infarct, old Code(s): I25.2 - OLD MYOCARDIAL INFARCTION (4) Subdural hematoma, post-traumatic Code(s): S06.5X9A - TRAUM SUBDR HEM W LOC OF UNSP DURATION, INIT Qualifiers: Encounter type: initial encounter Loss of consciousness presence/duration: without LOC Qualified Code(s): S06.5X0A - Traumatic subdural hemorrhage without loss of consciousness, initial encounter (5) Coronary artery disease Code(s): I25.10 - ATHSCL HEART DISEASE OF [place] CORONARY ARTERY W/O ANG PCTRS (6) Abnormal myocardial perfusion study Code(s): R94.39 - ABNORMAL RESULT OF OTHER CARDIOVASCULAR FUNCTION STUDY (7) Diastolic dysfunction Code(s): I51.9 - HEART DISEASE, UNSPECIFIED (8) Hyponatremia Code(s): E87.1 - HYPO-OSMOLALITY AND HYPONATREMIA Assessment/Plan 12/05/2016 Echo: Low normal LV systolic fxn EF 50-55%, mild LAE 4.7 cm, mod MR, mild TR 07/06/2015 Small to moderate inferolateral infarct with small periinfarct ischemia, LVEF 66% 1. Post-op D1 lluvia hole decompression of traumatic right SDH with moderate midline shift 2. CAD s/p [place] and abnormal MPI 3. Diastolic dysfunction with moderate MR 4. HTN/HCVD 5. Hyperlipidemia 6. Dementia 7. Hyponatremia PLAN: 1. Continue Atenolol 25 mg PO DAILY, Enalapril 5 mg PO DAILY, Amlodipine/ Atorvastatin [Amlodipine-Atorvast 5-20 mg] 1 each PO DAILY 2. DVT prophylaxis, PT as tolerated, analgesia as needed, free water restrict
--- NOTE | 2017-10-17 12:41 | PN ---
Teaching Attending Note Name of Resident: Amy León ATTENDING PHYSICIAN STATEMENT I saw and evaluated the patient. I reviewed the resident's note and discussed the case with the resident. I agree with the resident's findings and plan as documented. SUBJECTIVE: Patient seen and examined in the ICU. Awake and alert, but mildly confused. Denies CP or SOB. No dizziness, BOV, or TRAVIS. OBJECTIVE: Intake & Output 10/14/17 10/15/17 10/16/17 10/17/17 23:59 23:59 23:59 23:59 Intake Total 1600 42 Output Total 100 550 550 200 Balance -100 -550 1050 -158 Weight 121 lb 14.65 oz Last Vital Signs Temp Pulse Resp BP Pulse Ox 97.9 F 60 14 119/72 100 10/17/17 10:00 10/17/17 12:00 10/17/17 12:00 10/17/17 12:00 10/17/17 11:36 Active Medications Acetaminophen (Tylenol -) 325 mg PO Q4H PRN PRN Reason: PAIN Last Admin: 10/17/17 08:21 Dose: 325 mg Acetaminophen (Tylenol -) 650 mg PO Q4H PRN PRN Reason: FEVER Last Admin: 10/16/17 22:12 Dose: 650 mg Amlodipine Besylate (Norvasc -) 5 mg PO DAILY [facility] Last Admin: 10/17/17 10:33 Dose: 5 mg Atenolol (Tenormin -) 25 mg PO DAILY [facility] Last Admin: 10/16/17 13:57 Dose: 25 mg Atorvastatin Calcium (Lipitor -) 20 mg PO HS [facility] Last Admin: 10/16/17 21:36 Dose: 20 mg Chlorhexidine Gluconate (Hibiclens For Decolonization -) 1 applic TP HS [facility] Last Admin: 10/16/17 21:33 Dose: 1 applic Enalapril Maleate (Vasotec -) 5 mg PO DAILY [facility] Last Admin: 10/17/17 10:33 Dose: 5 mg Fentanyl (Sublimaze Injection -) 25 mcg IVPUSH [id number] PRN PRN Reason: PAIN-PACU ORDER X 4 DOSES ONLY Heparin Sodium (Porcine) (Heparin -) 5,000 unit SQ Q8H-IV [facility] Last Admin: 10/17/17 10:33 Dose: 5,000 unit Sodium Chloride (Normal Saline -) 1,000 mls @ 42 mls/hr IV ASDIR [facility] Last Admin: 10/17/17 08:15 Dose: 42 mls/hr Mupirocin (Bactroban Ointment (For Decolonization) -) 1 applic NS BID [facility] Stop: 10/20/17 09:59 Last Admin: 10/17/17 10:35 Dose: 1 applic Ondansetron HCl (Zofran Injection) 4 mg IVPUSH Q6H PRN PRN Reason: NAUSEA AND/OR VOMITING Oxycodone HCl (Roxicodone -) 5 mg PO Q4H PRN PRN Reason: PAIN LEVEL 1-5 Last Admin: 10/17/17 08:21 Dose: 5 mg Oxycodone HCl (Roxicodone -) 10 mg PO Q4H PRN PRN Reason: PAIN LEVEL 6-10 Last Admin: 10/16/17 22:12 Dose: 10 mg Tamsulosin HCl (Flomax -) 0.4 mg PO DAILY@0830 [facility] Last Admin: 10/17/17 08:22 Dose: 0.4 mg Gen: NAD at rest Heart: RRR Lung: decreased breath sounds at the bases Abd: soft, nontender Ext: no edema Laboratory Results - last 24 hr 10/17/17 10/17/17 05:55 05:55 WBC 8.8 D RBC 3.48 L Hgb 11.2 L Hct 32.4 L MCV 92.9 MCH 32.0 MCHC 34.5 RDW 12.9 Plt Count 255 MPV 6.3 L Neutrophils % 82.4 D Lymphocytes % 12.2 D Monocytes % 5.1 Eosinophils % 0.1 D Basophils % 0.2 Sodium 129 L Potassium 4.3 Chloride 93 L Carbon Dioxide 25 Anion Gap 11 BUN 15 Creatinine 0.8 Creat Clearance w eGFR > 60 Random Glucose 98 Calcium 8.6 Phosphorus 3.6 Magnesium 2.3 Total Bilirubin 0.5 D AST 18 ALT 17 Alkaline Phosphatase 61 Total Protein 6.9 Albumin 3.5 ASSESSMENT AND PLAN: Traumatic Subdural Hematoma s/p [place] Hole Evacuation CAD LV diastolic dysfunction HTN Hypercholesterolemia CKD BPH Dementia - pain control - neuro checks - continue home meds - mechanical DVT prophylaxis - Neuro unit Dr Shetty Critical care time spent in reviewing chart, evaluating patient and formulating plan - 36 minutes.
[2017-10-17] MEDS: ATENOLOL 25 MG TABLET (FP) PO SCH (14:10)
[2017-10-17] MEDS ORDERED: ONDANSETRON 4 MG/2 ML VIAL IVPUSH PRN (14:29)
[2017-10-17] MEDS ORDERED: ACETAMINOPHEN 325 MG TABLET (FP) PO PRN (14:29)
[2017-10-17] MEDS ORDERED: oxyCODONE HCL 5 MG TABLET PO PRN (14:29)
--- NOTE | 2017-10-17 14:37 | PN ---
Progress Note, Physician History of Present Illness: Last night: AMADEO last night. Voided. Tolerated dinner. VSS Today: POD1 from procedure. No complaints. No headache. Still not oriented to place/month. This AM, the patient accidently hit his R forehead on the IV pump. R forehead area nontender, has mild superficial edema. Full neurological exam was unchanged. No radiological tests ordered. Incident report signed. - Objective Vital Signs: Vital Signs Period Temp Pulse Resp BP Sys/Espinoza Pulse Ox Last 24 Hr 97.9 F-98.8 F 54-90 14-20 101-143/54-82 100-100 Additional Findings/Remarks: GEN: Awake, alert, not oriented to place and month. Talking with examiner HEENT: PERRLA, EOMi. Patch over R head amina. Small bump on R forehead, nontender CV: S1, S2, RRR LUNG: ctabl ABD: soft, nt, nd, normoactive bs MSK: No edema, no erythema NEURO: Full neurological exam performed. CN 2-12 intact. MSK 5/5 all extremities , sensation intact. Assessment/Plan 72yo M with a PMHx of Dementia (diagnosed last year), HTN who presented with a subdural hematoma after a mechanical slip & fall. Presents with increased confusion Neuro: * # R Subdural Hematoma - POD#1from [place] hole procedure. Stable post-op. No neurological worsening. Postop head CT shows evacuated hematoma. * # Dementia - Diagnosed last year, but more confused above baseline. CV: * # HTN - Can continue home antiHTN meds after surgery. BP stable. EKG NSR w/o ST or TWI FEN/PPX: No fluids, NPO, on SCDs Dispo: Transferred to floors. Amy León MD PGY1 ICU
[2017-10-17] MEDS: oxyCODONE HCL 5 MG TABLET PO PRN (16:37)
--- NOTE | 2017-10-17 18:26 | CONSULT ---
Consult Consult Specialty:: nephrology Reason for Consultation:: hyponatremia - History of Present Illness Chief Complaint: had sundural hematoma History of Present Illness: Pt is a 72 year old male with pmhx of HTN and BPH who presents to the ER after having a subdural hematoma. He was taken to OR and had a [place] hole procedure. I was called to evaluate him as he was found to have low sodium. He is awake and alert. He denies shortness of breath. He does try to drink water. His is at bedside who assisted with history. 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: Yes: Alzheimer's Cardio/Vascular: Yes: HTN, NC, Other (atheroslerotic heart disease) Renal/: Yes: BPH - Past Surgical History Past Surgical History: Yes: Cholecystectomy, Hernia Repair, Tonsillectomy - Alcohol/Substance Use Hx Alcohol Use: Yes (occasional) History of Substance Use: reports: None - Smoking History Smoking history: Former smoker (10 pack year history, quit in late 20s, smoked 1ppd for ~ 10yrs) Have you smoked in the past 12 months: No - Social History Usual Living Arrangement: With Spouse ADL: Independent Home Medications - Allergies Allergies/Adverse Reactions: Allergies Allergy/AdvReac Type Severity Reaction Status Date / Time No Known Allergies Allergy Unverified 10/14/17 17:40 - Home Medications Home Medications: Ambulatory Orders Atenolol 25 mg PO DAILY #18 tablet 06/21/14 Enalapril Maleate 5 mg PO DAILY tablet 06/21/14 Amlodipine/Atorvastatin [Amlodipine-Atorvast 5-20 mg] 1 each PO DAILY 10/14/17 Finasteride [Propecia] 1 mg PO DAILY 10/14/17 Memantine HCl [Namenda -] 10 mg PO BID 10/14/17 Tamsulosin HCl [Flomax] 0.4 mg PO DAILY 10/14/17 Family Disease History - Family Disease History Family History: Denies Review of Systems - Review of Systems Constitutional: reports: No Symptoms Eyes: reports: No Symptoms HENT: reports: No Symptoms Neck: reports: No Symptoms Cardiovascular: reports: No Symptoms Respiratory: reports: No Symptoms Gastrointestinal: reports: No Symptoms Genitourinary: reports: No Symptoms Musculoskeletal: reports: No Symptoms Integumentary: reports: No Symptoms Neurological: reports: No Symptoms Endocrine: reports: No Symptoms Hematology/Lymphatic: reports: No Symptoms Psychiatric: reports: No Symptoms Physical Exam Vital Signs: Vital Signs Temperature 97.9 F 10/17/17 14:00 Pulse Rate 68 10/17/17 14:00 Respiratory Rate 16 10/17/17 14:00 Blood Pressure 103/63 10/17/17 14:00 O2 Sat by Pulse Oximetry (%) 100 10/17/17 11:36 Constitutional: Yes: Calm Eyes: Yes: Conjunctiva Clear HENT: Yes: Atraumatic Cardiovascular: Yes: S1, S2 Gastrointestinal: Yes: Soft Renal/: Yes: WNL Musculoskeletal: Yes: WNL Edema: No Neurological: Yes: Oriented Psychiatric: Yes: Oriented Labs: CBC, BMP 10/17/17 05:55 10/17/17 05:55 Laboratory Tests 09/03/16 03/05/17 10/14/17 10:19 11:08 19:15 WBC Hgb Sodium 143 141 135 L Potassium Chloride Carbon Dioxide Anion Gap BUN Creatinine Urine pH Ur Specific [place] Urine Protein Urine Blood 10/14/17 10/15/17 10/16/17 21:02 06:10 05:47 WBC Hgb 11.8 Sodium 135 L Potassium Chloride Carbon Dioxide Anion Gap BUN Creatinine Urine pH 5.0 Ur Specific [place] 1.019 Urine Protein Negative Urine Blood Negative 10/16/17 10/17/17 10/17/17 05:47 05:55 05:55 WBC 8.8 D Hgb 11.2 L Sodium 133 L 129 L Potassium 4.3 Chloride 93 L Carbon Dioxide 25 Anion Gap 11 BUN 15 Creatinine 0.8 Urine pH Ur Specific [place] Urine Protein Urine Blood Imaging - Results Chest X-ray: Report Reviewed Problem List - Problems (1) HTN (hypertension) Code(s): I10 - ESSENTIAL (PRIMARY) HYPERTENSION (2) Hyponatremia Code(s): E87.1 - HYPO-OSMOLALITY AND HYPONATREMIA Assessment/Plan Current Medications Generic Name Dose Route Start Last Admin Trade Name Freq PRN Reason Stop Dose Admin Acetaminophen 325 mg 10/17/17 14:29 Tylenol - PO Q4H PRN PAIN Acetaminophen 650 mg 10/17/17 14:29 10/17/17 16:38 Tylenol - PO 650 mg Q4H PRN Administration FEVER Amlodipine Besylate 5 mg 10/18/17 10:00 Norvasc - PO DAILY [facility] Atenolol 25 mg 10/18/17 10:00 Tenormin - PO DAILY [facility] Atorvastatin Calcium 20 mg 10/17/17 22:00 Lipitor - PO HS [facility] Chlorhexidine Gluconate 1 applic 10/17/17 22:00 Hibiclens For Decolonization - TP HS [facility] Enalapril Maleate 5 mg 10/18/17 10:00 Vasotec - PO DAILY [facility] Fentanyl 25 mcg 10/17/17 14:29 Sublimaze Injection - IVPUSH Q5M PRN PAIN-PACU ORDER X 4 DOSES ONLY Heparin Sodium (Porcine) 5,000 unit 10/17/17 22:00 Heparin - SQ TID [facility] Sodium Chloride 1,000 mls @ 42 mls/hr 10/17/17 14:29 10/17/17 16:37 Normal Saline - IV 42 mls/hr ASDIR [facility] Administration Mupirocin 1 applic 10/17/17 22:00 Bactroban Ointment (For Decolonization) - NS 10/20/17 09:59 BID [facility] Ondansetron HCl 4 mg 10/17/17 14:29 Zofran Injection IVPUSH Q6H PRN NAUSEA AND/OR VOMITING Oxycodone HCl 5 mg 10/17/17 14:29 10/17/17 16:37 Roxicodone - PO 5 mg Q4H PRN Administration PAIN LEVEL 1-5 Oxycodone HCl 10 mg 10/17/17 14:29 Roxicodone - PO Q4H PRN PAIN LEVEL 6-10 Tamsulosin HCl 0.4 mg 10/18/17 08:30 Flomax - PO DAILY@0830 [facility] Impression 1. hyponatremia 2. HTN 3. s/p lluvia hole 4. dementia Plan - stop fluids - restrict free water - check urine lytes and science professor - check ua - check tsh and cortisol - repeat labs in am - can be more liberal with salt intake - will follow Dr Ramirez
[2017-10-17] MEDS ORDERED: CHLORHEXIDINE GLUCONATE 4% CLEANSER FOR DECOLONIZATION TP SCH (22:00)
[2017-10-17] MEDS ORDERED: MUPIROCIN 2% TOPICAL OINTMENT FOR DECOLONIZATION NS SCH (22:00)
[2017-10-17] MEDS ORDERED: ATORVASTATIN CA 20 MG TABLET (FP) PO SCH (22:00)
[2017-10-18] MEDS: oxyCODONE HCL 5 MG TABLET PO PRN ×3 (00:20→18:28)
[2017-10-18] MEDS: HEPARIN NA (PORCINE) 5,000 UNITS/ML 1ML VIAL SQ SCH ×2 (06:03→14:48)
[2017-10-18 07:06] LABS: HEMOGLOBIN 11.5 GM/dL (11.7-16.9); MCH 32.4 pg (25.7-33.7); MCHC 34.8 g/dl (32.0-35.9); MEAN CELL VOLUME 93.1 fl (80-96); MEAN PLT VOLUME 6.2 fl (7.5-11.1); PLATELET COUNT 250 K/MM3 (134-434); RBC 3.54 M/mm3 (4.00-5.60)
[2017-10-18] MEDS: ACETAMINOPHEN 325 MG TABLET (FP) PO PRN ×2 (07:16→18:28)
[2017-10-18 07:36] LABS: ANION GAP 7 (8-16); BLOOD UREA NITROGEN 14 mg/dL (7-18); CHLORIDE 96 mmol/L (98-107); CO2 27 mmol/L (21-32); CREATININE 0.8 mg/dL (0.7-1.3); GLUCOSE,RANDOM 77 mg/dL (74-106); POTASSIUM 4.5 mmol/L (3.5-5.1); SODIUM 130 mmol/L (136-145)
[2017-10-18] MEDS ORDERED: TAMSULOSIN HCL 0.4 MG CAP.ER.24H (FP) PO SCH (08:30)
[2017-10-18] MEDS ORDERED: amLODIPine BESYLATE 5 MG TABLET (FP) PO SCH (10:00)
[2017-10-18] MEDS ORDERED: ATENOLOL 25 MG TABLET (FP) PO SCH (10:00)
[2017-10-18] MEDS ORDERED: ENALAPRIL MALEATE 5 MG TABLET (FP) PO SCH (10:00)
--- NOTE | 2017-10-18 13:58 | PN ---
Progress Note (short form) - Note Progress Note: Chief Complaint: Events noted, notes reviewed, denies any chest pain or dyspnea , asymptomatic hypotension noted, plan to D/C home today History of Present Illness: Seen and examined on telemetry. Events noted, notes reviewed, denies any chest pain or dyspnea, asymptomatic hypotension noted, plan to D/C home today Post lluvia-hole right traumatic SDH evacuation Echocardiography 12/05/2016 revealed Low normal LV systolic fxn, LV EF 50-55%, mild LAE 4.7 cm, mod MR, mild TR MPI study dated 07/06/2015 revealed small to moderate size infero-lateral infarct with small asuncion-infarct ischemia, LVEF 66% - Current Medication List Current Medications Acetaminophen (Tylenol -) 325 mg PO Q4H PRN PRN Reason: PAIN Last Admin: 10/18/17 07:16 Dose: 325 mg Acetaminophen (Tylenol -) 650 mg PO Q4H PRN PRN Reason: FEVER Last Admin: 10/17/17 16:38 Dose: 650 mg Amlodipine Besylate (Norvasc -) 5 mg PO DAILY [facility] Last Admin: 10/18/17 10:10 Dose: 5 mg Atenolol (Tenormin -) 25 mg PO DAILY [facility] Last Admin: 10/18/17 10:10 Dose: 25 mg Atorvastatin Calcium (Lipitor -) 20 mg PO HS [facility] Last Admin: 10/17/17 21:29 Dose: 20 mg Enalapril Maleate (Vasotec -) 5 mg PO DAILY [facility] Last Admin: 10/18/17 10:10 Dose: 5 mg Fentanyl (Sublimaze Injection -) 25 mcg IVPUSH Q5M PRN PRN Reason: PAIN-PACU ORDER X 4 DOSES ONLY Heparin Sodium (Porcine) (Heparin -) 5,000 unit SQ TID [facility] Last Admin: 10/18/17 06:03 Dose: 5,000 unit Ondansetron HCl (Zofran Injection) 4 mg IVPUSH Q6H PRN PRN Reason: NAUSEA AND/OR VOMITING Oxycodone HCl (Roxicodone -) 5 mg PO Q4H PRN PRN Reason: PAIN LEVEL 1-5 Last Admin: 10/18/17 07:17 Dose: 5 mg Oxycodone HCl (Roxicodone -) 10 mg PO Q4H PRN PRN Reason: PAIN LEVEL 6-10 Last Admin: 10/18/17 12:05 Dose: 10 mg Tamsulosin HCl (Flomax -) 0.4 mg PO DAILY@0830 [facility] Last Admin: 10/18/17 08:51 Dose: 0.4 mg Review of Systems Cardiovascular: As noted above Respiratory: denies: denies: Cough or Sputum Production Gastrointestinal: denies: Nausea, Vomiting, Diarrhea, Constipation or Abdominal Discomfort Musculoskeletal: No Symptoms Reported Endocrine: No Symptoms Reported - Objective Vital Signs: Last Vital Signs Temp Pulse Resp BP Pulse Ox 98.5 F 63 18 124/68 99 10/18/17 13:48 10/18/17 13:48 10/18/17 13:48 10/18/17 07:51 10/18/17 08:00 Intake & Output 10/15/17 10/16/17 10/17/17 10/18/17 23:59 23:59 23:59 23:59 Intake Total 1600 748 120 Output Total 550 550 200 300 Balance -550 1050 548 -180 Constitutional: No Distress, Calm Neck: Supple Negative JVD Cardiovascular: S1 S2 Regular Rate and Rhythm Grade 2/6 Systolic Murmur Respiratory: CTA Bilaterally Gastrointestinal: Soft Benign Normal Bowel Sounds Ext: No Edema Labs: CBC, BMP 10/18/17 06:50 10/18/17 06:50 Assessment/Plan ASSESSMENT: 1. Post-op day 2 post lluvia-hole decompression of traumatic right SDH with moderate midline shift 2. CAD post CA abnormal MPI angina pectoris 3. Diastolic dysfunction with chronic class 0 NYHA classifcation LV failure 4. Moderate MR 5. HTN/HCVD 6. Hyperlipidemia 7. Dementia 8. Hyponatremia PLAN: 1. Continue Atenolol, hemodynamics permitting 2. Continue Enalapril, hemodynamics permitting 3. Continue Amlodipine, hemodynamics permitting 4. Continue Atorvastatin 5. Resume ASA once cleared by neuro-surgery 6. Ambulate and D/C home as per the primary team Maylin Waldrop MD
--- NOTE | 2017-10-18 14:39 | PN ---
Progress Note (short form) - Note Progress Note: covering dr curt Mazariegos 1. hyponatremia 2. HTN 3. s/p lluvia hole 4. dementia Active Medications Acetaminophen (Tylenol -) 325 mg PO Q4H PRN PRN Reason: PAIN Last Admin: 10/18/17 07:16 Dose: 325 mg Acetaminophen (Tylenol -) 650 mg PO Q4H PRN PRN Reason: FEVER Last Admin: 10/17/17 16:38 Dose: 650 mg Amlodipine Besylate (Norvasc -) 5 mg PO DAILY [facility] Last Admin: 10/18/17 10:10 Dose: 5 mg Atenolol (Tenormin -) 25 mg PO DAILY [facility] Last Admin: 10/18/17 10:10 Dose: 25 mg Atorvastatin Calcium (Lipitor -) 20 mg PO HS [facility] Last Admin: 10/17/17 21:29 Dose: 20 mg Enalapril Maleate (Vasotec -) 5 mg PO DAILY [facility] Last Admin: 10/18/17 10:10 Dose: 5 mg Fentanyl (Sublimaze Injection -) 25 mcg IVPUSH Q5M PRN PRN Reason: PAIN-PACU ORDER X 4 DOSES ONLY Heparin Sodium (Porcine) (Heparin -) 5,000 unit SQ TID [facility] Last Admin: 10/18/17 06:03 Dose: 5,000 unit Ondansetron HCl (Zofran Injection) 4 mg IVPUSH Q6H PRN PRN Reason: NAUSEA AND/OR VOMITING Oxycodone HCl (Roxicodone -) 5 mg PO Q4H PRN PRN Reason: PAIN LEVEL 1-5 Last Admin: 10/18/17 07:17 Dose: 5 mg Oxycodone HCl (Roxicodone -) 10 mg PO Q4H PRN PRN Reason: PAIN LEVEL 6-10 Last Admin: 10/18/17 12:05 Dose: 10 mg Tamsulosin HCl (Flomax -) 0.4 mg PO DAILY@0830 [facility] Last Admin: 10/18/17 08:51 Dose: 0.4 mg Last Vital Signs Temp Pulse Resp BP Pulse Ox 98.5 F 63 18 124/68 99 10/18/17 13:48 10/18/17 13:48 10/18/17 13:48 10/18/17 07:51 03/03/18 08:00 CBC, BMP 10/18/17 06:50 10/18/17 06:50 hyponatremia resolving slowly subdural hematoma evacuated Plan- no further intervention scheduled for d/c i recommend prompt f/u of serum sodium after d/c next week
--- NOTE | 2017-10-18 16:18 | PN ---
Progress Note (short form) - Note Progress Note: Patient stable from Neurosurgery standpoint. Postoperative Head CT shows good evacuation of SDH with no acute bleeding. Dressing with few spots of drainage. Dressing will be changed by Nursing prior to discharge. All questions answered. Patient and spouse will contact my office to schedule skin clip removal (likely on November 12). Discharge instructions given.
--- NOTE | 2017-10-18 18:13 | DS ---
Physical Examination Vital Signs: Vital Signs Temperature 98.5 F 10/18/17 13:48 Pulse Rate 67 10/18/17 15:10 Respiratory Rate 18 10/18/17 15:10 Blood Pressure 113/61 10/18/17 15:10 O2 Sat by Pulse Oximetry (%) 99 10/18/17 08:00 Constitutional: Yes: Well Nourished, No Distress, Calm Cardiovascular: Yes: Regular Rate and Rhythm Respiratory: Yes: Regular Neurological: Yes: Alert, Oriented Psychiatric: Yes: Alert, Oriented Labs: CBC, BMP 10/18/17 06:50 10/18/17 06:50 Discharge Summary Reason For Visit: POST TRAUMATIC SUBDURAL HEMATOMA Current Active Problems Abnormal myocardial perfusion study (Acute) Coronary artery disease (Acute) Diastolic dysfunction (Acute) HTN (hypertension) (Acute) Hyperlipidemia (Acute) Hypertensive cardiomyopathy (Acute) Hyponatremia (Acute) Myocardial infarct, old (Acute) Pre-operative cardiovascular examination (Acute) Subdural hematoma, post-traumatic (Acute) Hospital Course: 72 yo M with PMHx of HTN, IA, Artherosclerotic heart dx, BPH, dementia, presenting after a fall in [facility] on Sep 20 and found to have an initially stable subdural hematoma (CT head x2 in [facility]). Pt slipped in [facility] and fell while taking a shower, hitting his head face down on the tiles. He bled from a gash on his R forehead (Which was stitched) and bruised underneath his eyes R>L. Pt was observed in the ICU in [facility] for 2 days for the "small stable intracranial bleed". Following discharge from the hospital, in [facility], they continued their tours, at a slower pace, with the pt able to keep up with the activity. Since after the fall, the has noticed pt is more forgetful, and has a bit of an unsteady gait. No loss of sensation, facial droop, slurred speech or weakness of any part of the body however has been noted. No fevers, headaches, chest pain or SOB. Pt was sent by neurosurgeon Dr Cotton after MRI (10/14/17) revealed a moderate midline shift. Pt is to be admitted to ICU for neuro-checks and for monitoring post-lluvia hole. Operative Date: 10/16/17 Pre-Operative Diagnosis: Subdural hematoma Operation: right frontal lluvia hole with decompression of subdural hematoma Post-Operative Diagnosis: Same as Pre-op Surgeon: Marlon Cotton Condition: Stable - Instructions Diet, Activity, Other Instructions: Dr. Cotton's Discharge Instructions Dear LOLITA SCOTT, Post Operative Instructions Physical activity Resume your normal everyday activity as tolerated no heavy lifting or exercise until seen by your surgeon. You may walk unlimited amounts of and climb stairs. You may resume driving the car when you have been cleared by your surgeon. Wound care If you have a bandage, leave it on, and keep dry for 48 - 72 hours. After that time discard the outer bandage. You may shower 2 days after surgery but do not submerge the incision. The amina will be removed in 7-14 days Diet There are no dietary restrictions. Eat healthy, high-fiber foods. Drink 6 to 8 glasses of liquid each day. This will assist in keeping your bowels are regular. Pain management You may take Tylenol or acetaminophen. Any pain prescription medication ordered should be taken as prescribed for moderate to severe pain. Call Dr. Cotton for any of the following: Severe pain not relieved by medication Fever of 101 or higher Excessive bleeding or drainage on dressing Inability to urinate Call the office for a post operative appointment 7-10 days after surgery. -Follow up with PCP and nephrology within 2 weeks -repeat CMP/CBC with PCP Referrals: Marlon Cotton MD, [facility] [Staff Physician] - Wilfrido Garcia MD [Primary Care Provider] - Booker Ramirez MD [Staff Physician] - Disposition: [facility]NS/HOME HEALTH CARE - Home Medications Comprehensive Discharge Medication List: Ambulatory Orders Atenolol 25 mg PO DAILY #18 tablet 06/21/14 Enalapril Maleate 5 mg PO DAILY tablet 06/21/14 Amlodipine/Atorvastatin [Amlodipine-Atorvast 5-20 mg] 1 each PO DAILY 10/14/17 Finasteride [Propecia -] 1 mg PO DAILY 10/14/17 Memantine HCl [Namenda -] 10 mg PO BID 10/14/17 Tamsulosin HCl [Flomax -] 0.4 mg PO DAILY 10/14/17 Acetaminophen [Tylenol .Regular Strength -] 650 mg PO Q4H PRN #0 tablet
[2017-10-18 19:25] VITALS: BP 131/86; PULSE 85; TEMP 98.2
== END 2017-10-18 19:01 | disposition home health service (06) | DRG 26 ==
LOC: JER 16:57 → JERBED 20:28 → UNDOADMIN 20:28 → JERBED 21:19 → JICU 22:12 → J4W 10-17 14:48
PROVIDERS: ADMIT Internal Medicine; ATTEND Family Medicine
PROC: 00C43ZZ Extirpation of Matter from Intracranial Subdural Space, Percutaneous Approach (ICD-10-PCS; principal; 2017-10-16 08:00)
DX: S06.5X0A Traumatic subdural hemorrhage without loss of consciousness, initial encounter (principal); E87.1 Hypo-osmolality and hyponatremia; N40.0 Benign prostatic hyperplasia without lower urinary tract symptoms; F03.90 Unspecified dementia, unspecified severity, without behavioral disturbance, psychotic disturbance, mood disturbance, and anxiety; I25.10 Atherosclerotic heart disease of native coronary artery without angina pectoris; I25.2 Old myocardial infarction; Z87.891 Personal history of nicotine dependence; N18.9 Chronic kidney disease, unspecified; I13.10 Hypertensive heart and chronic kidney disease without heart failure, with stage 1 through stage 4 chronic kidney disease, or unspecified chronic kidney disease; E78.5 Hyperlipidemia, unspecified; I34.0 Nonrheumatic mitral (valve) insufficiency; W18.30XA Fall on same level, unspecified, initial encounter; Y93.89 Activity, other specified; Y92.89 Other specified places as the place of occurrence of the external cause; Y99.8 Other external cause status
CPT/HCPCS: 36415; 70450-TC; 71045-TC-FY; 80048; 80053; 81003; 82436; 82533; 82550; 83735; 83930; 83935; 84100; 84133; 84300; 84443; 84484; 85025; 85027; 85610; 85730; 86850; 86900; 86901; 93005; 93010; 94010; 97116-GP; 97161-GP; 99285-25; J1644; J7030

== ENCOUNTER 2022-05-19 04:15 | Emergency (ER) | payer OTHER ==
[2022-05-19 04:25] VITALS: BMI 19.1
[2022-05-19] MEDS ORDERED: VALSARTAN 80 MG TABLET PO ONE (04:43)
[2022-05-19] MEDS ORDERED: VALSARTAN 80 MG TABLET ONE (04:50)
[2022-05-19] MEDS ORDERED: TRANEXAMIC ACID 1000 MG/10 ML VIAL IVPB ONE (05:23)
[2022-05-19] MEDS ORDERED: TRANEXAMIC ACID 1000 MG/10 ML VIAL ONE (05:31)
[2022-05-19] MEDS ORDERED: NITROGLYCERIN SUBLINGUAL 1/150 0.4 MG TAB SL ONE (05:52)
[2022-05-19 07:40] VITALS: RESP 18
[2022-05-19 09:35] VITALS: BP 159/81; PULSE 71; TEMP 98.2
== END 2022-05-19 09:37 | disposition short-term general hospital (02) ==
LOC: JER 04:15
DX: R04.0 Epistaxis (principal)
CPT/HCPCS: 99285-25; C9803-CS; U0003; U0005